=== PATIENT | male | born 1995 | race Caucasian/White ===

== ENCOUNTER 2016-12-02 16:00 | Emergency (ER) | payer OTHER ==
[2016-12-02 16:11] VITALS: BP 148/99
[2016-12-02] MEDS ORDERED: Ibuprofen TAB* 600 MG PO ONE (19:23)
--- NOTE | 2016-12-02 19:29 | ED ---
Lower Extremity - HPI Summary HPI Summary: 21 male presents to ED with complaints of left knee pain that has been ongoing for the past couple of days, worsening yesterday. Patient states it is the entire knee, inside. Hurts with movement, specifically straightening it completely and weight bearing. Patient states he has had this occur in the past. Is concerned that things dislocated or are out of place. Denies recent known injury or trauma. No known overuse. Has not taken any medication for pain. Denies PMHx other than HTN. No other complaints. Denies bruising, numbness /tingling, swelling and obvious deformity. - History of Current Complaint Chief Complaint: EDExtremityLower Stated Complaint: LT KNEE PAIN/FEELS WRONG Time Seen by Provider: 12/02/16 17:42 Hx Obtained From: Patient Mechanism Of Injury: Unknown Onset of Pain: Days Onset/Duration: Worse Since Severity Initially: Moderate Severity Currently: Severe Pain Intensity: 10 Pain Scale Used: 0-10 Numeric Timing: Constant Location: Is Discrete @ - left knee Character Of Pain: Sharp, Aching, Stiffness Associated Signs And Symptoms: Positive: Knee Pain. Negative: Swelling, Redness , Bruising Aggravating Factor(s): Standing, Ambulation, Movement, Weight Bearing Alleviating Factor(s): Rest Able to Bear Weight: Yes - with a cane, with pain - Allergies/Home Medications Allergies/Adverse Reactions: Allergies Allergy/AdvReac Type Severity Reaction Status Date / Time No Known Allergies Allergy Verified 09/13/12 10:19 PMH/Surg Hx/FS Hx/Imm Hx Endocrine/Hematology History: Denies: Hx Diabetes Cardiovascular History: Reports: Hx Hypertension Denies: Other Cardiovascular Problems/Disorders Respiratory History: Denies: Hx Asthma, Other Respiratory Problems/Disorders GI History: Reports: Hx Gastroesophageal Reflux Disease, Hx Hiatal Hernia Denies: Hx Ulcer Musculoskeletal History: Denies: Other Musculoskeletal History Sensory History: Denies: Hx Hearing Aid Comment Only: Hx Contacts or Glasses - GLASSES Opthamlomology History: Comment Only: Hx Contacts or Glasses - GLASSES Neurological History: Reports: Hx Headaches Denies: Other Neuro Impairments/Disorders - Surgical History Hx Anesthesia Reactions: No - Immunization History Immunizations Up to Date: Yes Infectious Disease History: No Infectious Disease History: Denies: Traveled Outside the [place] in Last 30 Days - Family History Known Family History: Positive: None - Social History Substance Use Type: Reports: None Smoking Status (MU): Never Smoked Tobacco Review of Systems Constitutional: Negative Respiratory: Negative Gastrointestinal: Negative Positive: Arthralgia, Myalgia, Decreased ROM Skin: Negative Neurological: Negative All Other Systems Reviewed And Are Negative: Yes Physical Exam Triage Information Reviewed: Yes Vital Signs On Initial Exam: Initial Vitals Temp Pulse Resp BP Pulse Ox 97.9 F 101 20 148/99 97 12/02/16 16:08 12/02/16 16:08 12/02/16 16:08 12/02/16 16:08 12/02/16 16:08 Vital Signs Reviewed: Yes Appearance: Positive: Well-Appearing, No Pain Distress, Well-Nourished Skin: Positive: Warm, Skin Color Reflects Adequate Perfusion, Dry, Other - no edema or eccyhmosis. Negative: Cold, Numb, Cyanosis @, Pale, Erythema @ Head/Face: Positive: Normal Head/Face Inspection Eyes: Positive: Normal, EOMI, MARIELENA, Conjunctiva Clear ENT: Positive: Normal ENT inspection, Hearing grossly normal, Pharynx normal, TMs normal Neck: Positive: Supple, Nontender Respiratory/Lung Sounds: Positive: Clear to Auscultation, Breath Sounds Present. Negative: Rales, Rhonchi, Wheezes Cardiovascular: Positive: Normal, RRR, Pulses are Symmetrical in both Upper and Lower Extremities. Negative: Murmur, Rub Abdomen Description: Positive: Nontender Bowel Sounds: Positive: Present Musculoskeletal: Positive: Normal, Limited @ - left knee with flexion and extension, any movement causes pain. diffuse, Pain @ - left knee, Other - no ecchymosis, crepitus, edema, step off or obvious deformity. Negative: Edema Left, Edema Right Neurological: Positive: Normal, Sensory/Motor Intact - sensation intact and normal, Alert, Oriented to Person Place, Time, Reflexes Intact, NV Bundle Intact Distally, Unable to Assess Gait - due to pain, patient is able to bear weight with use of cane Psychiatric: Positive: Affect/Mood Appropriate Diagnostics - Vital Signs Vital Signs Temp Pulse Resp BP Pulse Ox 12/02/16 16:08 97.9 F 101 20 148/99 97 - Laboratory Lab Statement: Any lab studies that have been ordered have been reviewed, and results considered in the medical decision making process. - Radiology left knee Xray Interpretation: No Acute Changes - The visualized bones are well- corticated and properly aligned. The joint spaces are properly maintained. There is no radiographic evidence of joint effusion. There is no acute fracture , dislocation or other focal bony abnormality. Radiology Interpretation Completed By: Radiologist Lower Extremity Course/Dx - Course Course Of Treatment: given ibuprofen for pain, had some relief. x-ray obtained and negative. given immobilizer and crutches. continue NSAID and RICE at home. no concern for any other emergent etiology at this time. normal PE findings. patient able to bear weight but does have pain. follow up with ortho if symptoms persist or worsen. follow up pcp. aware of worsening signs and symptoms to watch out for and to return if occur. - Diagnoses Differential Diagnosis/HQI/PQRI: Positive: Arthritis, Contusion, Dislocation, Fracture (Closed), Sprain, Strain Provider Diagnoses: Left knee pain Discharge - Discharge Plan Condition: Stable Disposition: HOME Patient Education Materials: Knee Pain (ED) Referrals: Magan Nails MD [Primary Care Provider] - Orly Cruz MD [Medical Doctor] - Additional Instructions: Use crutches and knee immobilizer to help with support and pain. Ibuprofen/tylenol for pain and discomfort. Heat during day and ice at night. Rest and elevate. Do not over use, use pain as your guide. Follow up with PCP. Make an appointment with Ortho if symptoms persist or worsen.
--- NOTE | 2016-12-02 19:54 | RAD ---
INDICATION: Left knee pain/"feels wrong" COMPARISON: None TECHNIQUE: 4 view radiograph of the left knee. FINDINGS: The visualized bones are well-corticated and properly aligned. The joint spaces are properly maintained. There is no radiographic evidence of joint effusion. There is no acute fracture, dislocation or other focal bony abnormality. IMPRESSION: Normal knee radiograph as described above. If the patient's symptoms persist, follow-up imaging is recommended.
== END 2016-12-02 20:15 | disposition home or self-care (01) ==
LOC: ED 16:00
DX: M25.562 Pain in left knee (principal); I10 Essential (primary) hypertension
CPT/HCPCS: A9270-GY

== ENCOUNTER 2018-06-10 21:03 | Emergency (ER) | payer OTHER ==
[2018-06-10 21:51] VITALS: BP 154/105
[2018-06-10] MEDS ORDERED: Cephalexin CAP* 500 MG PO ONE (22:15)
--- NOTE | 2018-06-10 22:19 | UC ---
Skin Complaint HPI - HPI Summary HPI Summary: 23 y/o male presents to the urgent care c/o left great infected ingrown toenail he noticed this morning. Pt reports he trimmed his toe nails about 3 days ago. This morning he noticed some drainage from it and it is very painful at touch and ambulation. Pain is 7/8. He has not applied or taking anything to alleviate symptoms. Pt denies Hx of MRSA, numbness or tingling sensation over the left great toe of foot, calf pain, SOb, chest pain, abdominal pain, dizziness, N/V/ D. - History of Current Complaint Chief Complaint: UCSkin Time Seen by Provider: 06/10/18 21:59 Stated Complaint: INGROWN TOENAIL Hx Obtained From: Patient Onset/Duration: Gradual Onset, Lasting Hours - 12 hrs, Still Present Skin Exposure Onset/Duration: Days Ago - 2 days ago Timing: Constant Onset Severity: Mild Current Severity: Moderate Pain Intensity: 7 Pain Scale Used: 0-10 Numeric Location: Discrete - left great toe infection Character: Swelling, Redness, Painful Aggravating Factor(s): Touch, Other - ambulation Alleviating Factor(s): Nothing Associated Signs & Symptoms: Positive: Rash - redness around left great toe, Drainage, Tenderness - left great toe. Negative: Fever, Chills Related History: Other: - trimming toe nails - Allergy/Home Medications Allergies/Adverse Reactions: Allergies Allergy/AdvReac Type Severity Reaction Status Date / Time No Known Allergies Allergy Verified 06/15/18 21:13 PMH/Surg Hx/FS Hx/Imm Hx Previously Healthy: Yes Cardiovascular History: Hypertension GI/ History: Gastroesophageal Reflux - and hiatal hernia - Surgical History Surgical History: Yes Surgery Procedure, Year, and Place: BILAT GREAT TOE SURGERIES, HIATAL HERNIA - Family History Known Family History: Positive: Hypertension - Social History Occupation: Employed Full-time Lives: With Family Alcohol Use: None Substance Use Type: None Smoking Status (MU): Never Smoked Tobacco Review of Systems All Other Systems Reviewed And Are Negative: Yes Constitutional: Positive: Negative Skin: Positive: Other - painful redness and swelling around the left great toe Eyes: Positive: Negative ENT: Positive: Negative Respiratory: Positive: Negative Cardiovascular: Positive: Negative Gastrointestinal: Positive: Negative Genitourinary: Positive: Negative Motor: Positive: Negative Neurovascular: Positive: Negative Musculoskeletal: Positive: Other: - left great toe infection Neurological: Positive: Negative Psychological: Positive: Negative Is Patient Immunocompromised?: No Physical Exam - Summary Physical Exam Summary: Vital Signs Reviewed: Yes General: well developed, well nourished obese male sitting in the examining table w/o any apparent distress Eye Exam: Normal Eyes: Positive: Conjunctiva Clear - PERRLA, EOMI, fundi grossly normal ENT: Positive: Normal ENT inspection, Hearing grossly normal, Pharynx normal, TMs normal Neck: Positive: Supple, Nontender, No Lymphadenopathy Respiratory: Positive: Chest non-tender, Lungs clear, Normal breath sounds, No respiratory distress Cardiovascular: Positive: RRR, No Murmur, Pulses Normal, Brisk Capillary Refill Abdomen Description: Positive: Nontender, No Organomegaly, Soft. Negative: CVA Tenderness (R), CVA Tenderness (L) Bowel Sounds: Positive: Present Musculoskeletal: Positive: Strength Intact, ROM Intact, No Edema Neurological: Positive: Alert, Muscle Tone Normal Psychological Exam: Normal Skin: Positive: medial aspect of left great toe w/ a discrete erythematous pustule that is indurated and fluctuant, tender to palpation, swollen, and warm to touch about .3cm in size. No drainage observed. FROM of great toe, sensation is intact, capillary refill WNL, reflexes WNL Triage Information Reviewed: Yes Vital Signs: Initial Vital Signs Temp 97.8 F 06/10/18 21:45 Pulse 103 06/10/18 21:45 Resp 16 06/10/18 21:45 BP 154/105 06/10/18 21:45 Pulse Ox 98 06/10/18 21:45 Course/Dx - Course Course Of Treatment: 23 y/o male presents to the urgent care c/o left great infected ingrown toenail he noticed this morning. Pt reports he trimmed his toe nails about 3 days ago. This morning he noticed some drainage from it and it is very painful at touch and ambulation. Pain is 7/8. He has not applied or taking anything to alleviate symptoms. Pt denies Hx of MRSA, numbness or tingling sensation over the left great toe of foot, calf pain, SOB, chest pain, abdominal pain, dizziness, N/V/ D. Hx obtained. Pt w/ left great toe paronychia. Pt declined I&D and request antibiotic treatment for now. No Hx of MRSA. Pt/s fot soak in warm water and antiseptic for 15min. area cleaned w/ iodine swabs and bacitracin ointment applied and sterile dressing applied. Pt Rx Keflex PO and Bacitracin oint advised to soak foot on warm water w/ [place] as directed below. First dose of ABX given at the clinic tonight since pharmacy is closed. Pt given post-op shoe to avoid flexion and givne referral w/ [employer] Dr Soto for further management if not improvement of symptoms in 2-3 dyas. Pt Advised to take Ibuprofen PO for pain and swelling. D/C instructions explained. Pt's BP is elevated today advised to decrease salt in diet, monitor BP and f/u with PCP for further management. However advised if he develops visual changes,SHERMAN, SOB, chest pain to go inmediately to the ER for further managment. D/C instructions explained. PT understood and agreed w/ plan of care. - Differential Diagnoses - Skin Complaint Differential Diagnoses: Abscess, Cellulitis, Local Allergic Reaction, MRSA, Other - paronychia, ingrown toenail - Diagnoses Provider Diagnosis: Ingrowing nail, left great toe, Uncontrolled hypertension Discharge - Sign-Out/Discharge Documenting (check all that apply): Patient Departure - D/C home All imaging exams completed and their final reports reviewed: No Studies - Discharge Plan Condition: Stable Disposition: HOME Prescriptions: Bacitracin OINTMENT* 1 applic TOPICAL BID #1 tube Cephalexin CAP* [Keflex CAP*] 500 mg PO QID #27 cap Patient Education Materials: Ingrown Nail (ED), Low-Sodium Diet (ED) Forms: *Work Release Referrals: Magan Nails MD [Primary Care Provider] - 3 Days Royce Soto DPM [Doctor of Podiatric Medicine] - 3 Days Additional Instructions: 1-Please take full course of antibiotic to avoid resistance. Keep wound clean and dry with a sterile dressing. Apply bacitracin topical as directed 2-Take Ibuprofen PO q6-8hrs prn for pain or swelling. 3- Please avoid flexion or your great toe by using the post-up shoe 4- Please f/u w/ [employer] Dr Soto in 2-3 days if not improvement of symptoms for further evaluation and treatment. 5-Your BP is elevated today. Please take your BP medications and decrease salt in your diet, monitor BP and if it continues to be elevated please f/u with your PCP for further management. If you develop chest pain, dizziness, visual disturbances, SOB, or severe SHERMAN please go immediately to the ER for further management - Billing Disposition and Condition Condition: STABLE Disposition: Home - Attestation Statements Provider Attestation: I was available for consult. This patient was seen by the CITLALLI. The patient was not presented to, seen by, or examined by me. -Andrew
== END 2018-06-10 23:05 | disposition home or self-care (01) ==
LOC: UCEAST 21:03
DX: L60.0 Ingrowing nail (principal); I10 Essential (primary) hypertension; K21.9 Gastro-esophageal reflux disease without esophagitis; K44.9 Diaphragmatic hernia without obstruction or gangrene
CPT/HCPCS: 99213; A9270-GY; G0463

== ENCOUNTER 2018-06-15 21:04 | Emergency (ER) | payer OTHER ==
[2018-06-15] MEDS ORDERED: Ketorolac INJ* 30 MG/ML 1 ML VIAL IV PUSH ONE (21:29)
--- NOTE | 2018-06-15 21:29 | ED ---
HPI Chest Pain - HPI Summary HPI Summary: A 23 y/o M presents to ED with c/o sharp CP on L-anterior onset [id number]. Associated sx: SOB, RUE pain which resolved. Pt was at rest at onset. He states that after dinner, the pain became milder and moved to mid-sternal. At bedside, his CP is back to L-anterior. He has not had these sx previously, and he has GERD, but tonight's sx don't feel like that. He has not been sick recently. He is on HTN medication. He also states being irritable today. Vitals at bedside: 109 bpm, BP: 170/109. - History of Current Complaint Chief Complaint: EDChestPainROMI Time Seen by Provider: 06/15/18 21:23 Hx Obtained From: Patient Onset/Duration: Started Hours Ago, Still Present Timing: Constant Initial Severity: Moderate Current Severity: Moderate Pain Intensity: 4 Pain Scale Used: 0-10 Numeric Chest Pain Location: Mid Sternal, Left Anterior Associated Signs and Symptoms: Positive: Shortness of Breath, Other: - pos: RUE pain, resolved - Allergy/Home Medications Allergies/Adverse Reactions: Allergies Allergy/AdvReac Type Severity Reaction Status Date / Time No Known Allergies Allergy Verified 06/15/18 21:13 Home Medications: Home Medications dilTIAZem HCl [Dilt-Xr] 180 mg PO QPM 06/15/18 [History Confirmed 06/15/18] PMH/Surg Hx/FS Hx/Imm Hx Previously Healthy: No Endocrine/Hematology History: Denies: Hx Diabetes Cardiovascular History: Reports: Hx Hypertension Denies: Other Cardiovascular Problems/Disorders Respiratory History: Denies: Hx Asthma, Other Respiratory Problems/Disorders GI History: Reports: Hx Gastroesophageal Reflux Disease, Hx Hiatal Hernia Denies: Hx Ulcer Musculoskeletal History: Denies: Other Musculoskeletal History Sensory History: Denies: Hx Hearing Aid Comment Only: Hx Contacts or Glasses - GLASSES Opthamlomology History: Comment Only: Hx Contacts or Glasses - GLASSES Neurological History: Reports: Hx Headaches Denies: Other Neuro Impairments/Disorders - Surgical History Surgery Procedure, Year, and Place: BILAT GREAT TOE SURGERIES, HIATAL HERNIA Hx Anesthesia Reactions: No Infectious Disease History: No Infectious Disease History: Denies: Traveled Outside the [place] in Last 30 Days - Family History Known Family History: Positive: None, Other - neg: anaesthesia reaction - Social History Occupation: Unemployed Lives: Alone Alcohol Use: None Hx Substance Use: No Substance Use Type: Reports: None Hx Tobacco Use: No Smoking Status (MU): Never Smoked Tobacco Review of Systems Positive: Chest Pain Positive: Shortness Of Breath Musculoskeletal: Other - pos: RUE pain, resolved All Other Systems Reviewed And Are Negative: Yes Physical Exam - Summary Physical Exam Summary: Appearance: Well-appearing, Obese male lying in bed comfortably Skin: Warm, dry, no obvious rash Eyes: sclera anicteric, no conjunctival pallor ENT: mucous membranes moist, pharynx appears normal Neck: Supple, nontender Respiratory: Clear to auscultation, no signs of respiratory distress Cardiovascular: Tachycardia, Normal S1, S2. No murmurs. Normal distal pulses in tibial and radial bilaterally. Abdomen: Soft, nontender, normal active bowel sounds present Musculoskeletal: Normal, Strength/ROM Intact Neurological: A&Ox3, awake and alert, mentation is normal, speech is fluent and appropriate Psychiatric: affect is normal, does not appear anxious or depressed Triage Information Reviewed: Yes Vital Signs On Initial Exam: Initial Vitals Temp Pulse Resp BP Pulse Ox 97.8 F 103 19 206/103 95 06/15/18 21:10 06/15/18 21:10 06/15/18 21:10 06/15/18 21:10 06/15/18 21:10 Vital Signs Reviewed: Yes Diagnostics - Vital Signs Vital Signs Temp Pulse Resp BP Pulse Ox 06/15/18 21:10 97.8 F 103 19 206/103 95 - Laboratory Result Diagrams: 06/15/18 21:36 06/15/18 23:02 Lab Statement: Any lab studies that have been ordered have been reviewed, and results considered in the medical decision making process. - EKG 2106 Cardiac Rate: Tachycardia - 102 bpm EKG Rhythm: Sinus Tachycardia Chest Pain Course/Dx - Course Course Of Treatment: Pt is an obese 23 y/o M presenting with sharp CP on L- anterior and mild SOB onset [id number] while at rest. Pt is tachy at bedside. EKG shows sinus tachy at 102 bpm. PT WILL BE SIGNED OUT TO DR. ROSARIO AT [facility]IFT [facility]ANGE PENDING CXR AND LABS. - Diagnoses Provider Diagnoses: Chest wall pain Discharge - Sign-Out/Discharge Documenting (check all that apply): Sign-Out Patient Signing out patient TO: Samuel Rosario - pending CXR and labs Patient Received Moderate/Deep Sedation with Procedure: No - Discharge Plan Condition: Stable Disposition: HOME Prescriptions: Ibuprofen TAB* [Motrin TAB* 800 MG] 800 mg PO Q6H PRN #30 tab PRN Reason: Pain Patient Education Materials: Chest Pain (ED) Referrals: Magan Nails MD [Primary Care Provider] - Additional Instructions: RETURN TO THE EMERGENCY DEPARTMENT FOR CHANGING OR WORSENING SYMPTOMS. FOLLOW UP WITH YOUR PRIMARY CARE PROVIDER WITHIN 1 to 2 DAYS as recommended. - Billing Disposition and Condition Condition: STABLE Disposition: Home - Attestation Statements Document Initiated by Bowen: Yes Documenting Scribe: Nasra Molina Provider For Whom Bowen is Documenting (Include Credential): Dr. Jean Pierre New MD Scribe Attestation: Nasra Owusu, scribed for Dr. Jean Pierre New MD on 06/18/18 at 0646. Scribe Documentation Reviewed: Yes Provider Attestation: The documentation as recorded by the Nasra ponce accurately reflects the service I personally performed and the decisions made by me, Dr. Jean Pierre New MD Status of Scribe Document: Viewed
[2018-06-15 21:42] LABS: ABS Basophils 0 10^3/ul (0-0.2); ABS Eosinophils 0.1 10^3/ul (0-0.6); ABS Lymphocytes 2.6 10^3/ul (1.0-4.8); ABS Monocytes 0.7 10^3/ul (0-0.8); ABS Neutrophils 3.4 10^3/ul (1.5-7.7); ABS Nucleated RBC 0 10^3/ul; Hematocrit 44 % (36-46); Hemoglobin 15.5 g/dL (14.0-18.0); Lymphocyte % 38.8 %; Mean Corpuscular HGB Conc 35 g/dL (31-36); Mean Corpuscular Hemoglobin 28 pg (27-31); Mean Corpuscular Volume 79 fL (80-94); Mean Platelet Volume 7.9 fL (7.4-10.4); Nucleated Red Blood Cells % 0.1; Platelet Count 216 10^3/uL (150-450); Red Blood Count 5.62 10^6 /uL (4.18-5.48); Red Cell Distribution Width 14 % (10.5-15); White Blood Count 6.8 10^3/uL (3.5-10.8)
[2018-06-15 21:59] LABS: ALT 126 U/L (7-52); Albumin 4.3 g/dL (3.2-5.2); Albumin/Globulin Ratio 1.5 (1-3); Alkaline Phosphatase 90 U/L (34-104); BUN/Creatinine Ratio 17.9 (8-20); Blood Urea Nitrogen 15 mg/dL (6-24); CO2 Carbon Dioxide 22 mmol/L (22-32); Calcium 9.2 mg/dL (8.6-10.3); Chloride 105 mmol/L (101-111); EGFR Non-African American 113.2 (>60); Globulin 2.8 g/dL (2-4); Glucose 113 mg/dL (70-100); Sodium 136 mmol/L (135-145); Total Protein 7.1 g/dL (6.4-8.9)
--- OUTSIDE RECORDS SUMMARY | 2018-06-15 22:00 | XMS REPORT | Continuity of Care Document ---
:1995 External Reference #:[id number] Author Name NO Regan Address [address] [facility] [place] [address] Care Team Providers Name Role Phone Magan Nails Care Team Information Assistant Professor Of Life Sciences Unavailable Magan Nails Primary Care Physician Unavailable Payers Date Identification Numbers Payment Provider Subscriber Effective: 2011 Policy Number: [id number] [facility] Hien Santana Group Name: [employer] [address] [address] PayID: [id number] [place] [address] Advance Directives Description No Information Available Problems Date Description Provider Status Onset: 05/26/2011 Acute upper respiratory infection Magan Nails M.D. Active Onset: 12/13/2012 Low back pain Magan Nails M.D. Active Onset: 12/13/2012 Neuralgia Magan Nails M.D. Active Onset: 03/17/2013 Epigastric pain Magan Nails M.D. Active Onset: 03/17/2013 Benign essential hypertension Magan Nails M.D. Active Onset: 03/17/2013 Gastroesophageal reflux disease Magan Nails M.D. Active Onset: 05/22/2013 Elevated blood-pressure reading without Magan Nails M.D. Active diagnosis of hypertension Onset: 04/27/2017 Palpitations Magan Nails M.D. Active Onset: 12/25/2016 Enthesopathy of knee Magan Nails M.D. Active Family History Date Family Member(s) Observation Comments Father Hypertension Father Glaucoma Father [place] Maternal Grandmother Ovarian Cancer Social History Type Date Description Comments Sex Unknown Lives With mother Tobacco Use Start: Unknown Never Smoked Cigarettes ETOH Use Denies alcohol use Recreational Drug Use Denies Drug Use Tobacco Use Start: Unknown Patient has never smoked Exercise Type/Frequency Exercises sporadically Allergies, Adverse Reactions, Alerts Description No Known Drug Allergies Medications Medication Date Status Form Strength Qnty SIG Indications Ordering Provider Dilt-XR 04/28 Active Caps ER 180mg 30cap Take One I10 Magan T. 24HR s Capsule By Midura, Mouth Every M.D. Day For High Blood Pressure Physical Therapy 01/03 Active treatment M54.5 Magan T. and Mid, evaluation M.D. low back pain Brimonidine 12/25 Active Solution 0.2% 1 GTT Both Unknown Tar Eyes bid for glaucoma Glaucoma gtts 09/29 Active 1 gtt both Unknown eyes qhs Azithromycin 05/16 Hx Tablets 250mg 6tabs 2 by mouth J06.9 Magan T. /2018 today and 1 Mid, - by mouth x M.D. 05/24 4 days Cheratussin ac 05/16 Hx Syrup 100-10mg/ 120ml 5-10 J06.9 Magan T. 5ML milliliters Mid, - every 4 M.D. 05/24 hours needed Diltiazem HCL ER 11/29 Hx Caps ER 180mg 30cap 1 by mouth I10 Magan T. 24HR s every day Midura, - for high M.D. 04/28 blood /2019 pressure Diltiazem HCL ER 10/29 Hx Caps ER 120mg 30cap 1 by mouth I10 Magan T. 24HR s daILY for Midura, - high blood M.D. 11/29 pressure /2017 Atenolol 05/21 Hx Tablets 25mg 30tab 1 by mouth I10 Magan T. s every day Midura, - M.D. 10/29 Meloxicam 12/25 Hx Tablets 7.5mg 30tab 1 by mouth M70.52 Magan T. s every day Midura, - for pain M.D. 04/27 and inflamation take with food. Physical Therapy 12/25 Hx treatment M70.52 Magan T. and Midura, - evaluation M.D. 04/27 left knee pain Lisinopril 11/11 Hx Tablets 10mg 30tab 1 by mouth Magan T. s every day Midura, - M.D. 05/21 No Active 10/09 Hx Unknown Medications /2016 - 11/11 No Active 10/08 Hx Unknown Medications /2015 - 10/08 Cyclobenzaprine 10/08 Hx Tablets 10mg 30tab 1 by mouth M54.5 Constance HCL /2015 s q hs as Sandy, - needed [facility] 10/09 No Active 10/17 Hx Unknown Medications /2014 - 10/17 Cyclobenzaprine 10/17 Hx Tablets 10mg 10tab 1 by mouth Leigh Ann HCL s q hs as Abdulaziz, - needed Afnp-C 10/08 Famotidine 03/17 Hx Tablets 20mg 30tab 1 bid prn 789.06 Magan T. s for stomach Midura, - M.D. 10/17 No Active 11/21 Hx Unknown Medications /2012 - 03/17 No Active 03/11 Hx Unknown Medications /2012 - 06/29 Zithromax 05/25 Hx Tablets 250mg 1tabs 2 po qd 465.9 Magan T. /2011 today , Midura, - then 1 po M.D. 06/04 qd times Zantac 05/03 Hx Tablets 150mg 60tab 1 po bid s Abdulaziz, - Afnp-C 05/25 Retin-A 08/19 Hx Cream 0.05% 45gm apply to Magan T. affected Midura, - area qhs M.D. 03/11 Nix Creme Rinse 11/29 Hx Liquid 1% 30ml apply to Magan T. scalp, Midura, - rinse out M.D. 08/19 after minutes Zithromax Z-Brayan 05/07 Hx Tablets 250mg 1Pack as Directed Cary R /2005 Mook, Janae SARABIA-Ching 10/29 Albuterol Aero 05/07 Hx 1unit Use tid as Cary Wright Inhaler /2005 s Directed Janea DelvalleP-C 11/27 Singulair 05/07 Hx Tablets 4mg 40tab One PO Cary R /2005 s Daily as Mook, - Directed [facility]-C 11/27 Robitussin 05/07 Hx Syrup 100mg/5ML 4Oz 1-2 TSP PO Cary R /2005 ;3.5%Alco qid prn Mook, - ho Cough [facility]-C 10/29 Nasonex 08/04 Hx 50mcg 1unit 1 spray Leigh Ann /2004 s each [facility], - nostril Afnp-C 11/27 daily /2007 Zithromax 07/25 Hx Suspension 200mg/5 40ML 2 teaspoons Roddy J. /2004 ML today and Breiman, - one M.D. 05/07 teaspoon /2005 for four days Claritin 07/21 Hx Tablets 10mg 30tab 1 po qd prn Magan T. /2004 s for Midura, - allergies M.D. 05/07 Zithromax 02/12 Hx 200mg/5cc 15ml 1 TSP Cb A. Suspension /2002 Today, Then Darlow, 200MG/5cc - /2 TSP qd M.D. 02/17 For 4 Days /2002 Tussi-12 02/12 Hx Liquid 100cc 1 tsp q12h Cb A. /2002 prn cough Darlow, - M.D. 02/12 Robitussin DM 02/12 Hx 4Oz one tsp Cb A. /2002 q4-6 prn as Darlow, - needed for M.D. 03/30 cough /2003 Bactroban 12/19 Hx Cream 15gm Apply bid prn Alexandra, - Afnp-C 12/26 Zithromax 04/01 Hx 200mg/5cc 30ml 2 TSP Day Magan T. Suspension One Then 1 Midura, 200MG/5cc - TSP Daily M.D. 12/19 Over /2002 Next 4 Days. Keflex 10/24 Hx 250mg/5cc 100cc Liquid - 1 Magan T. /2001 TSP PO bid Midura, - M.D. 03/[address] 20mg 1 po qd Unknown /0000 - 11/21 Immunizations CPT Code Status Date Vaccine Reaction Lot # [id number] Given 10/20/2017 Tetanus And Diptheria Adult [id number] Preservative Free >7Yrs 44109 Given 05/22/2013 Meningococcal Conjugate [id number] Vaccine,Serogroups For Intramuscular Use 82953 Given 08/19/2010 Varicella (Chicken Pox) no reaction noted [id number] Immunization 75177 Given 08/02/2006 Tdap Tetanus, W Pertussis [id number] 14557 Given 10/31/1999 (IPV) Inactive Poliovirus Vaccine 01918 Given 10/31/1999 MMR Virus Immunization 25636 Given 10/31/1999 DTaP Immunization 06276 Given 04/29/1996 MMR Virus Immunization 32811 Given 04/29/1996 DTaP Immunization 19434 Given 04/29/1996 (Hib) Hemoplilus Influenza B 56114 Given 02/03/1996 Varicella (Chicken Pox) Immunization 05040 Given 1995 (Hib) Hemoplilus Influenza B 02421 Given 1995 DTaP Immunization 62027 Given 1995 (IPV) Inactive Poliovirus Vaccine 76912 Given 1995 Hepatitis B Immunization, [place]-19 Years 934[address] Given 1995 (IPV) Inactive Poliovirus Vaccine 70779 Given 1995 DTaP Immunization 85513 Given 1995 (Hib) Hemoplilus Influenza B 85408 Given 1995 Hepatitis B Immunization, [place]-19 Years 47939 Given 1995 (IPV) Inactive Poliovirus Vaccine 06209 Given 1995 DTaP Immunization 88927 Given 1995 (Hib) Hemoplilus Influenza B 18834 Given 1995 Hepatitis B Immunization, -19 Years Vital Signs Date Vital Result Comment 05/24/2018 1:56pm BP Systolic 132 mmHg BP Diastolic 66 mmHg Heart Rate 84 /min Body Temperature 97.1 F Respiratory Rate 18 /min Height 69 inches 5'9" Weight 290.50 lb BMI (Body Mass Index) 42.9 kg/m2 05/16/2018 9:11am BP Systolic 142 mmHg BP Diastolic 90 mmHg Heart Rate 120 /min Body Temperature 97.0 F Respiratory Rate 22 /min Weight 294.00 lb 01/03/2018 3:59pm BP Systolic 148 mmHg BP Diastolic 88 mmHg Heart Rate 88 /min Body Temperature 98.2 F Respiratory Rate 18 /min Height 69.5 inches 5'9.50" measured 10/17/14 Weight 290.12 lb BMI (Body Mass Index) 42.2 kg/m2 11/29/2017 11:00am BP Systolic 148 mmHg BP Diastolic 82 mmHg Heart Rate 80 /min Body Temperature 97.7 F Respiratory Rate 16 /min Height 69.5 inches 5'9.50" measured 10/17/14 Weight 285.25 lb BMI (Body Mass Index) 41.5 kg/m2 10/29/2017 4:09pm BP Systolic 136 mmHg BP Diastolic 88 mmHg Heart Rate 76 /min Body Temperature 97.2 F Respiratory Rate 16 /min Height 69.5 inches 5'9.50" measured 10/17/14 Weight 286.38 lb BMI (Body Mass Index) 41.7 kg/m2 07/16/2017 4:05pm BP Systolic 140 mmHg BP Diastolic 80 mmHg Heart Rate 76 /min Body Temperature 98.0 F Respiratory Rate 16 /min Height 69.5 inches 5'9.50" measured 10/17/14 Weight 290.00 lb BMI (Body Mass Index) 42.2 kg/m2 05/21/2017 11:40am BP Systolic 156 mmHg BP Diastolic 80 mmHg Heart Rate 90 /min Body Temperature 97.9 F Respiratory Rate 16 /min Height 69.5 inches 5'9.50" measured 10/17/14 Weight 279.50 lb BMI (Body Mass Index) 40.7 kg/m2 04/27/2017 1:37pm BP Systolic 138 mmHg BP Diastolic 82 mmHg Heart Rate 76 /min Body Temperature 97.5 F Respiratory Rate 16 /min Height 69.5 inches 5'9.50" measured 10/17/14 Weight 281.25 lb BMI (Body Mass Index) 40.9 kg/m2 12/25/2016 2:15pm BP Systolic 158 mmHg BP Diastolic 80 mmHg Heart Rate 90 /min Body Temperature 97.5 F Respiratory Rate 16 /min Height 69.5 inches 5'9.50" measured 10/17/14 Weight 277.38 lb BMI (Body Mass Index) 40.4 kg/m2 10/09/2016 10:16am BP Systolic 150 mmHg BP Diastolic 108 mmHg Heart Rate 76 /min Body Temperature 97.7 F Height 69.5 inches 5'9.50" measured 10/17/14 Weight 280.00 lb BMI (Body Mass Index) 40.8 kg/m2 10/09/2015 1:31pm BP Systolic 120 mmHg BP Diastolic 80 mmHg Heart Rate 76 /min Body Temperature 98.0 F Respiratory Rate 18 /min Height 69.5 inches 5'9.50" measured 10/17/14 Weight 268.00 lb BMI (Body Mass Index) 39.0 kg/m2 10/17/2014 10:50am BP Systolic 158 mmHg BP Diastolic 98 mmHg Heart Rate 84 /min Body Temperature 97.7 F Respiratory Rate 16 /min Height 69.75 inches 5'9.75" measured 10/17/14 Weight 271.12 lb BMI (Body Mass Index) 39.2 kg/m2 06/26/2013 12:54pm BP Systolic 130 mmHg BP Diastolic 80 mmHg Heart Rate 66 /min Body Temperature 97.7 F Respiratory Rate 18 /min Height 69.5 inches 5'9.50" Weight 252.00 lb BMI (Body Mass Index) 36.7 kg/m2 Body Mass Index Percentile 99 % Weight Percentile >97th Height Percentile 50 % 05/22/2013 3:26pm BP Systolic 138 mmHg BP Diastolic 90 mmHg Heart Rate 84 /min Body Temperature 97.5 F Respiratory Rate 16 /min Height 69.5 inches 5'9.50" Weight 249.00 lb BMI (Body Mass Index) 36.2 kg/m2 Body Mass Index Percentile 99 % Weight Percentile >97th Height Percentile 51 % 03/17/2013 4:08pm BP Systolic 140 mmHg BP Diastolic 86 mmHg Heart Rate 90 /min Body Temperature 95.7 F Respiratory Rate 16 /min Height 69.5 inches 5'9.50" Weight 244.38 lb BMI (Body Mass Index) 35.6 kg/m2 Body Mass Index Percentile 99 % Weight Percentile >97th Height Percentile 51 % 12/13/2012 5:19pm BP Systolic 134 mmHg BP Diastolic 88 mmHg Heart Rate 90 /min Body Temperature 97.7 F Respiratory Rate 16 /min Height 69.5 inches 5'9.50" Weight 223.25 lb BMI (Body Mass Index) 32.5 kg/m2 Body Mass Index Percentile 98 % Weight Percentile >97th Height Percentile 52 % 11/21/2012 7:06pm BP Systolic 140 mmHg BP Diastolic 90 mmHg Heart Rate 68 /min Body Temperature 98.4 F Respiratory Rate 16 /min Height 69.5 inches 5'9.50" Weight 226.00 lb BMI (Body Mass Index) 32.9 kg/m2 Body Mass Index Percentile 98 % Weight Percentile >97th Height Percentile 52 % 06/29/2012 11:06am BP Systolic 138 mmHg BP Diastolic 80 mmHg Heart Rate 88 /min Body Temperature 98.2 F Respiratory Rate 18 /min Height 69.5 inches 5'9.50" Weight 226.00 lb BMI (Body Mass Index) 32.9 kg/m2 Body Mass Index Percentile 98 % Weight Percentile >97th Height Percentile 54 % 03/11/2012 9:13am BP Systolic 120 mmHg BP Diastolic 80 mmHg Heart Rate 76 /min Body Temperature 98.0 F Height 68 inches 5'8" Weight 218.00 lb BMI (Body Mass Index) 33.1 kg/m2 Body Mass Index Percentile 98 % Weight Percentile >97th Height Percentile 35 % 05/26/2011 12:38pm BP Systolic 110 mmHg BP Diastolic 70 mmHg Heart Rate 88 /min Body Temperature 97.7 F Respiratory Rate 14 /min Height 68 inches 5'8" Weight 211.00 lb BMI (Body Mass Index) 32.1 kg/m2 Body Mass Index Percentile 98 % Weight Percentile >97th Height Percentile 42 % 05/04/2011 12:52pm BP Systolic 126 mmHg BP Diastolic 68 mmHg Heart Rate 72 /min Body Temperature 97.1 F Height 68 inches 5'8" Weight 216.00 lb BMI (Body Mass Index) 32.8 kg/m2 Body Mass Index Percentile 98 % Weight Percentile >97th Height Percentile 43 % 08/19/2010 2:10pm BP Systolic 110 mmHg BP Diastolic 70 mmHg Heart Rate 64 /min Body Temperature 98.2 F Respiratory Rate 18 /min Height 68 inches 5'8" Weight 195.00 lb BMI (Body Mass Index) 29.6 kg/m2 Body Mass Index Percentile 97 % Weight Percentile 97th Height Percentile 53 % Right Visual Acuity Distance 20/20 With Corrective Lens Left Visual Acuity Distance 20/20 07/16/2008 4:17pm BP Systolic 120 mmHg BP Diastolic 80 mmHg Heart Rate 80 /min Body Temperature 98.4 F Height 66.5 inches 5'6.50" Weight 158.00 lb BMI (Body Mass Index) 25.1 kg/m2 Body Mass Index Percentile 98 % Weight Percentile >97th Height Percentile 87 % 11/28/2007 4:00pm BP Systolic 110 mmHg BP Diastolic 80 mmHg Heart Rate 80 /min Body Temperature 97.9 F Height 65 inches 5'5" Weight 146.00 lb BMI (Body Mass Index) 24.3 kg/m2 Body Mass Index Percentile 97 % Weight Percentile >97th Height Percentile 90 % Right Visual Acuity Distance 20/40 Left Visual Acuity Distance 20/40 03/15/2006 4:25pm BP Systolic 100 mmHg BP Diastolic 60 mmHg Body Temperature 98.9 F Weight 115.00 lb Weight Percentile >95th 10/29/2005 9:18am BP Systolic 125 mmHg BP Diastolic 76 mmHg Heart Rate 84 /min Height 58 inches 4'10" Weight 106.00 lb BMI (Body Mass Index) 22.2 kg/m2 Body Mass Index Percentile 95 % Weight Percentile 95th Height Percentile 76 % Right Visual Acuity Distance 20/25 Left Visual Acuity Distance 20/25 05/07/2005 3:02pm BP Systolic 92 mmHg BP Diastolic 60 mmHg Body Temperature 98.4 F Weight 108.00 lb Weight Percentile >95th 09/26/2004 2:34pm BP Systolic 108 mmHg BP Diastolic 68 mmHg Heart Rate 100 /min Body Temperature 98.3 F Height 54 inches 4'6" Weight 100.00 lb BMI (Body Mass Index) 24.1 kg/m2 Body Mass Index Percentile 95 % Weight Percentile >95th Height Percentile 52 % 07/21/2004 6:14pm BP Systolic 110 mmHg BP Diastolic 70 mmHg Heart Rate 90 /min Body Temperature 97.3 F Weight 103.00 lb Weight Percentile >95th 08/13/2003 2:36pm BP Systolic 102 mmHg BP Diastolic 62 mmHg Heart Rate 86 /min Height 55.0 inches 4'7" Weight 96.00 lb BMI (Body Mass Index) 22.3 kg/m2 Weight Percentile >95th Height Percentile 92 % 07/05/2003 8:13pm BP Systolic 98 mmHg BP Diastolic 58 mmHg Heart Rate 84 /min Body Temperature 97.5 F Weight 98.00 lb Weight Percentile >95th 03/30/2003 2:01pm Body Temperature 98.1 F Weight 93.00 lb Weight Percentile >95th 03/14/2003 3:11pm Body Temperature 97.0 F Weight 93.00 lb Weight Percentile >95th 02/28/2003 4:46pm BP Systolic 114 mmHg BP Diastolic 60 mmHg Heart Rate 96 /min Weight 92.00 lb Weight Percentile >95th 02/12/2003 3:07pm BP Systolic 96 mmHg BP Diastolic 64 mmHg Heart Rate 104 /min Body Temperature 98.4 F Weight 92.00 lb Weight Percentile >95th 02/07/2003 1:07pm Body Temperature 97.0 F Weight 90.00 lb Weight Percentile >95th 01/31/2003 1:48pm Body Temperature 98.6 F Weight 94.00 lb Weight Percentile >95th 01/17/2003 12:51pm BP Systolic 94 mmHg BP Diastolic 60 mmHg Heart Rate 96 /min Weight 91.00 lb Weight Percentile >95th 01/10/2003 9:09am Body Temperature 97.6 F Weight 88.00 lb Weight Percentile >95th 12/19/2002 2:12pm BP Systolic 106 mmHg BP Diastolic 78 mmHg Heart Rate 100 /min Height 54.5 inches 4'6.50" Weight 85.00 lb BMI (Body Mass Index) 20.1 kg/m2 Weight Percentile >95th Height Percentile 95 % Right Visual Acuity Distance 20/20 Left Visual Acuity Distance 20/20 04/01/2002 11:40am Body Temperature 96.0 F Weight 82.00 lb Weight Percentile >95th 03/29/2002 12:37pm Body Temperature 98.0 F Weight 82.00 lb Weight Percentile >95th 03/16/2002 8:33pm BP Systolic 98 mmHg BP Diastolic 60 mmHg Heart Rate 90 /min Body Temperature 96.5 F Height 51 inches 4'3" Weight 83.00 lb BMI (Body Mass Index) 22.4 kg/m2 Weight Percentile >95th Height Percentile 93 % 10/24/2001 3:00pm BP Systolic 100 mmHg BP Diastolic 60 mmHg Height 49 inches 4'1" Weight 71.00 lb BMI (Body Mass Index) 20.8 kg/m2 Weight Percentile >95th Height Percentile 95 % Right Visual Acuity Distance 20/25 03/29/2001 2:01pm Body Temperature 97.0 F Weight 65.00 lb Weight Percentile >95th 10/06/2000 3:17pm BP Systolic 102 mmHg BP Diastolic 60 mmHg Heart Rate 88 /min Height 47.25 inches 3'11.25" Weight 60.00 lb BMI (Body Mass Index) 19.1 kg/m2 Weight Percentile >95th Height Percentile 95 % Results Test Date Facility Test Result H/L Range Note Basic Metabolic Profile 04/27/2017 [facility] Sodium 138 mEq/L 134- 149 Potassium 4.2 mEq/L 3.6-5.5 Chloride 98 mEq/L 94-112 Carbon Dioxide 26 mEq/L 21-32 Glucose 104 mg/dL 70-105 BUN 14 mg/dL 6-26 Creatinine 0.9 mg/dL 0.6-1.4 BUN/Creat Ratio 15.6 CALC 8.0-36.0 Calcium 9.9 mg/dL 8.6-10.2 GFR Non- >60 ml/min/1.73m^ >=60 GFR >60 ml/min/1.73m^ >=60 Laboratory test 04/27/2017 [facility] Magnesium, Serum 1.7 mEq/L 1.2-2.1 finding TSH 1.93 mIU/L 0.50-6.00 Free T4 1.22 ng/dL 0.75-1.54 Ua - Non Micro (Fma) 10/09/2015 Family [facility] Appearance clear (607)- - Color yellow Glucose, Urine (Fma/CMC/CTX) neg Bilirubin neg Ketones neg SP Grav 1.025 Blood neg PH 6.0 Protein neg Urobil 0.2 Nitrite neg Leukocytes (a/[facility]) neg Comprehensive Metabolic Prof 11/30/2012 [facility] Albumin 4.9 g/dL 3.8-5.5 Alk. Phos. 118 U/L High 22-95 1 Alt (SGPT) 67 U/L High 10-40 2 Ast (Sgot) 40 U/L High 5-34 3 BUN 11 mg/dL 6-26 Calcium 9.2 mg/dL 8.6-10.2 Chloride 98 mEq/L 94-112 Creatinine 1.0 mg/dL 0.6-1.4 Carbon Dioxide 27 mEq/L 21-32 Glucose 91 mg/dL 70-105 Sodium 136 mEq/L 134-149 Total Bilirubin 0.7 mg/dL 0.2-1.3 Total Protein 7.4 g/dL 6.3-8.1 Potassium 4.1 mEq/L 3.6-5.5 Globulin 2.5 g/dL 2.0-4.8 A/G Ratio 2.0 Calc 0.6-2.3 BUN/Creat Ratio 11.0 Calc 8.0-36.0 Laboratory test 11/30/2012 [facility] TSH 0.59 mIU/L 0.50-6.00 finding Lipid Profile 11/30/2012 [facility] Cholesterol 174 mg/dL 120-200 HDL 33 mg/dL 30-70 Triglycerides 162 mg/dL 30-200 HDL Risk Factor 5.3 CALC High 0.0-4.4 LDL (Calculated) 109 CALC 0-129 VLDL (Calculated) 32 mg/dL 0-50 CBC Electronic (Fma) 11/30/2012 [facility] WBC 7.6 3.6-9.6 (607)- - RBC 5.60 3.90-5.70 Hemoglobin (Fma/CMC/CTX) 15.7 g/dL 12.1 - 17.2 Hematocrit (Fma/CMC/CTX) 47.0 % 36.1 - 50.3 Platelets 195 10^3/ul 150-400 Lymph% 20.7 20.5-51.1 Mixed% 4.1 Neutrophils % 75.2 Mean Corpuscular Vol 84 82.2-97.4 Mean Corpuscular Hemoglobin 28.0 27.6-33.3 Mean Corpuscular Hemo Concen 33.4 32.0-36.0 RDW 11.3 Low 11.6-13.7 Mean Platelet Volume 7.0 6.5-11.0 Clotest 05/02/2012 [facility] Clotest (SEE NOTE) 4 Stool For Blood 04/08/2012 [facility] Stool Occult Blood (SEE NOTE) 5 CBC Auto Diff 04/08/2012 [facility] White Blood Count 6.1 10^3/uL 4.8-10.8 Red Blood Count 5.69 10^6/uL High 4.0-5.4 Hemoglobin 16.0 g/dL 14.0-18.0 Hematocrit 46 % 42-52 Mean Corpuscular Volume 81 fL 80-94 Mean Corpuscular Hemoglobin 28 pg 27-31 Mean Corpuscular HGB Conc 35 g/dL 31-36 Red Cell Distribution Width 13 % 10.5-15 Platelet Count 215 10^3/uL 150-450 Mean Platelet Volume 7 um3 Low 7.4-10.4 Abs Neutrophils 3.9 10^3/uL 1.5-7.7 Abs Lymphocytes 1.6 10^3/uL 1.0-4.8 Abs Monocytes 0.6 10^3/uL 0-0.8 Abs Eosinophils 0.1 10^3/uL 0-0.6 Abs Basophils 0 10^3/uL 0-0.2 Abs Nucleated RBC 0 10^3/uL Granulocyte % 63.7 % 38-83 Lymphocyte % 25.9 % 25-47 Monocyte % 9.1 % High 1-9 Eosinophil % 0.9 % 0-6 Basophil % 0.4 % 0-2 Nucleated Red Blood Cells % 0.1 Urinalysis 04/08/2012 [facility] Urine Color Yellow Urine Appearance Turbid Urine Specific [place] 1.022 1.010-1.030 Urine Esterase Negative Negative Urine Nitrate Negative Negative Urine Urobilinogen Negative E.U./dL Negative Urine Protein Negative mg/dL Negative Urine pH 7.5 5-9 Urine Blood Negative Negative Urine Ketones Negative mg/dL Negative Urine Bilirubin Negative Negative Urine Glucose Negative mg/dL Negative Comp Metabolic Panel 04/08/2012 [facility] Sodium 136 mmol/L 133-145 Potassium 4.1 mmol/L 3.5-5.0 Chloride 103 mmol/L 101-111 Co2 Carbon Dioxide 27.0 mmol/L 22-32 Anion Gap 6.0 mmol/L 2-11 Glucose 90 mg/dL 70-100 Blood Urea Nitrogen 11 mg/dL 6-24 Creatinine 0.70 mg/dL 0.50-1.40 BUN/Creatinine Ratio 15.7 8-20 Calcium 9.4 mg/dL 8.1-9.9 Total Protein 7.0 g/dL 6.2-8.1 Albumin 4.2 g/dL 3.6-5.4 Globulin 2.8 g/dL 2-4 Albumin/Globulin Ratio 1.5 1-3 Total Bilirubin 0.8 mg/dL 0.4-1.5 Alkaline Phosphatase 106 U/L 50-176 Alt 55 U/L High 14-54 Ast 38 U/L 12-42 Laboratory test finding 04/08/2012 [facility] Lipase 52 U/L High 22-51 C Reactive Protein 1.0 mg/dL High Less than 0.5 Laboratory test 05/26/2011 [facility] Bordetella <SEE 6 finding Pertussis NOTE> CBC Electronic 05/04/2011 [facility] WBC 7.1 3.6-9 (Fma) (607)- - .6 RBC 5.39 3.90-5.70 Hemoglobin (Fma/CMC/CTX) 15.3 g/dL 12.1 - 17.2 Hematocrit (Fma/CMC/CTX) 43.6 % 36.1 - 50.3 Platelets 228 10^3/ul 150-400 Lymph% 33.3 20.5-51.1 Mixed% 9.7 Neutrophils % 57.0 Mean Corpuscular Vol 80.9 Low 82.2-97.4 Mean Corpuscular Hemoglobin 28.4 27.6-33.3 Mean Corpuscular Hemo Concen 35.1 32.0-36.0 RDW 12.9 11.6-13.7 Mean Platelet Volume 9.8 6.5-11.0 Laboratory test finding 05/04/2011 [facility] TSH 1.74 mIU/L 0.50- 6.00 Free T4 0.80 ng/dL 0.75-1.54 Comprehensive Metabolic Prof 05/04/2011 [facility] Albumin 4.6 g/dL 3.8-5.5 Alk. Phos. 132 U/L High 22-95 7 Alt (SGPT) 49 U/L High 10-40 8 Ast (Sgot) 31 U/L 5-34 BUN 18 mg/dL 6-26 Calcium 9.0 mg/dL 8.6-10.2 Chloride 99 mEq/L 94-112 Creatinine 0.8 mg/dL 0.6-1.4 Carbon Dioxide 29 mEq/L 21-32 Glucose 90 mg/dL 70-105 Sodium 134 mEq/L 134-149 Total Bilirubin 0.4 mg/dL 0.2-1.3 Total Protein 7.2 g/dL 6.3-8.1 Potassium 3.9 mEq/L 3.6-5.5 Globulin 2.5 g/dL 2.0-4.8 A/G Ratio 1.8 Calc 0.6-2.2 BUN/Creat Ratio 23.8 Calc 8.0-36.0 Iron/Tibc,%Sat Group 02/17/2011 [facility] Iron 51 g/dL 46-155 9 [address] [place] [address] [phone] Total Iron Binding Cap. 402 g/dL 250-450 % Iron Saturation 12.7 % Low 13.0-45.0 Hered Hemochrom 02/17/2011 [facility] Hereditary SEE NOTE 10 Dna 28 [facility] [place] [address] [phone] Please Note: SEE NOTE 11 CBC Electronic (Fma) 02/17/2011 [facility] [place] [facility] WBC 6.4 3.6-9.6 (607)- - RBC 5.24 3.90-5.70 Hemoglobin (Fma/CMC/CTX) 14.8 g/dL 12.1 - 17.2 Hematocrit (Fma/CMC/CTX) 42.8 % 36.1 - 50.3 Platelets 210 10^3/ul 150-400 Lymph% 33.6 20.5-51.1 Mixed% 8.0 Neutrophils % 58.4 Mean Corpuscular Vol 81.7 Low 82.2-97.4 Mean Corpuscular Hemoglobin 28.2 27.6-33.3 Mean Corpuscular Hemo Concen 34.6 32.0-36.0 RDW 13.1 11.6-13.7 Mean Platelet Volume 9.2 6.5-11.0 Hep C Abs 02/11/2011 [facility] Hep C Antibody NON-REACTIVE Non-Reactive [address] [place], [place] [id number] [phone] Hep C S/Co Ratio <0.0 0.0-0.7 Ua - Non Micro (Fma) 08/19/2010 [facility] Appearance CLEAR (607)- - Color YELLOW Glucose NEG Bilirubin NEG Ketones NEG SP Grav 1.020 Blood NEG PH 5.5 Protein NEG Urobil 0.2 Nitrite NEG Leukocytes (Fma/CMC/[facility]) NEG Ua - Non Micro (Fma) 07/16/2008 [facility] Appearance CLEAR (607)- - Color YELLOW Glucose NEG Bilirubin NEG Ketones NEG SP Grav 1.020 Blood NEG PH 7.5 Protein SSA- Urobil 1.0 Nitrite NEG Leukocytes (Fma/CMC/[facility]) NEG Ua - Non Micro (Fma) 11/28/2007 [facility] Appearance CLEAR (607)- - Color YELLOW Glucose NEG Bilirubin NEG Ketones TRACE SP Grav 1.015 Blood NEG PH 8.5 Protein SSA=NEG Urobil 1.0 Nitrite NEG Leukocytes (Fma/CMC/[facility]) NEG Ua - Non Micro (Fma) 10/29/2005 Family [facility] Appearance CLEAR (607)- - Color YELLOW Glucose NEG Bilirubin NEG Ketones NEG SP Grav >=1.030 Blood NEG PH 5.5 Protein NEG Urobil 0.2 Nitrite NEG Leukocytes (Fma/CMC/[facility]) NEG Ua - Non Micro (Fma New) 09/26/2004 Family Medicine Appearance CLEAR (607)- - Color YELLOW Glucose NEG Bilirubin NEG Ketones NEG SP Grav 1.015 Blood NEG PH 7.5 Protein NEG Urobil 0.2 Nitrite NEG Leukocytes NEG Ua - Non Micro (Fma New) 08/13/2003 Family Medicine Appearance CLEAR (607)- - Color LT YELLOW Glucose NEG Bilirubin NEG Ketones NEG SP Grav >=1.030 Blood NEG PH 5.0 Protein NEG Urobil 0.2 Nitrite NEG Leukocytes NEG Ua - Non Micro (Fma New) 12/19/2002 Family Medicine Appearance CLEAR (607)- - Color YELLOW Glucose NEG Bilirubin NEG Ketones NEG SP Grav 1.025 Blood NEG PH 7.0 Protein NEG Urobil 0.2 Nitrite NEG Leukocytes NEG Ua - Non Micro (Fma New) 10/24/2001 Family Medicine Appearance CLEAR/ YELLOW (607)- - Glucose NEG Bilirubin NEG Ketones NEG SP Grav 1.020 Blood NEG PH 6.5 Protein NEG Urobil 0.2 Nitrite NEG Leukocytes NEG Laboratory test 10/24/2001 [facility] Lead, Blood 8.2 0-25.0 12 finding (Pediatric) Laboratory test 04/08/2001 Family Medicine Quickstrep NEGATIVE Negative finding (607)- - Ua - Non Micro 10/06/2000 Family Medicine Appearance CLEAR YELLOW (Fma New) (607)- - Glucose NEGATIVE Bilirubin NEGATIVE Ketones NEGATIVE SP Grav 1.025 Blood NEGATIVE PH 6.0 Protein NEGATIVE Urobil 0.2 Nitrite NEGATIVE Leukocytes NEGATIVE 1 result zeenat'd 2 result zeenat'd 3 result zeenat'd 4 RUN DATE: 05/03/12 [facility] LAB LIVE PAGE 1 RUN TIME: [address] [place] [address] Specimen Inquiry Name: HIEN SANTANA : [address]: Jatinder Dozier MD Acct: [id number] Unit: [id number] AGE: 17 Location: ENDO Re05/02/12 SEX: M Status: REG REF SPEC: [id number] ZULEIMA: 05/02/127701 [facility] DR: Jatinder Dozier MD REQ: [id number] RECD: 05/02/12 STATUS: JOSELIN SNOW DR: Magan Nails MD _ SOURCE: [facility]AS [facility]: ORDERED: Clotest Procedure Result Verified Site Clotest Final 05/03/12745 ML Clotest Negative END OF REPORT * ML=Testing performed at Main Lab DEPARTMENT OF PATHOLOGY, [address] [place] [address] Jhon Kerr M.D. Director [facility] Permit #[id number] RUN DATE: 04/08/12 [facility] LAB LIVE PAGE 1 RUN TIME: [address] [place] [address] Specimen Inquiry Name: HIEN SANTANA : [address]: Jose Angel Bustillo Acct: [id number] Unit: [id number] AGE: 17 Location: ED Re04/08/12 SEX: M Status: REG ER SPEC: [id number] ZULEIMA: 04/08/[address] [facility] [address]: Jose Angel Noguera DO REQ: [id number] RECD: 04/08/12 STATUS: JOSELIN SNOW DR: Magan Nails MD _ SOURCE: STOOL SPDESC: ORDERED: Hemoccult Procedure Result Verified Site Stool Specimen Description Final 04/08/12- 1344 ML Test not performed Stool Occult Blood Final 04/08/12- 1344 ML Stool Occult Blood Positive END OF REPORT * ML=Testing performed at Main Lab DEPARTMENT OF PATHOLOGY, [address] [place] [address] Jhon Kerr M.D. [facility] Permit #[id number] 6 RUN DATE: 05/29/11 [facility] NMI LIVE PAGE 1 RUN TIME: 906 Specimen Inquiry RUN USER: INTERFACE Name: HIEN SANTANA Status: REG REF Re05/26/11 Age/Sex: 16/M Unit#: [id number] Location: RUST : 95 SPEC #: [id number] ZULEIMA: 05/26/11 STATUS: COMP REQ #: [id number] RECD: 05/26/[address] [facility] [address]: Jesu RANGEL,Magan Riggs SOURCE: NASMONOARYN ENTR: 05/26/[address]: GLADIS: ORDERED: PERTUSSIS GALLIPOLIS QUERIES: MEDENT REQUISITION # [id number] ACT WKST: SO 05/29/11 #1 Procedure Result Verified Site > BORDETELLA PERTUSSIS Final 05/29/11- 0907 ML BORDETELLA BY RAPID PCR Negative for Bordetella pertussis/parapertussis DNA Laboratory developed test. Test performed by: [employer] [place], [place] [address] - [facility] Permit #[id number] [address] [place] [address] DEPARTMENT OF PATHOLOGY, [address] [place] [address] [facility] Permit #[id number] Jhon Kerr M.D. Director Nora Lara M.D. [employer] 7 RESULT ZEENAT'D 8 RESULT ZEENAT'D 9 ; 10 NO MUTATION IDENTIFIED . Interpretation: This patient's sample was analyzed for the hereditary hemochromatosis (HH) mutations C282Y, H63D, S65C. No mutation was identified. The mutations analyzed by [employer] are most common in the population, and up to 90% of affected Caucasians will have a positive test result. Because this panel does not identify rare HH mutations or HH mutations found in other ethnic groups, there are a small number of people who may have a negative test but may actually be affected. The diagnosis of HH should include clinical findings and other test results such as transferrin-iron saturation and/or serum ferritin studies and/or liver biopsy. If this patient has a history of HH, in many cases a specific carrier risk can be determined based on this negative result. Methodology: DNA Analysis of the HFE gene was performed by PCR amplification followed by restriction enzyme digestion analyses. . Reference: Randall LEON and Laz ROLLINS. (2000). Latesha Test 4:97-101. Lashay LOREDO et al. (1998). AM J Prev Med 16:134-140. Jarod De La Rosa (2002). Lancet 360(4657):1673-31. Marilu Quiros al. (2002). Blood Cells, Molecules. and Diseases. 29(3):418-432. Grisel Montiel et al. (2003). Latesha Med. 5(1):1-8. Lashay LOREDO et al. (2003). Latesha Med. 5(4):304-10. 11 Genetic counselors are available for health care providers to discuss results at [phone]. . Raffy Shields, Ph.D. Gris Corcoran, Ph.D. Monica Early, Ph.D. Annie Trotter, Ph.D. Shaniqua Santo, Ph.D. Jeannie Santos, Ph.D. 12 REFERENCE RANGE FOR CHILDREN LESS THAN 6 CBC CLASS BLOOD LEAD CONCENTRATION (MG/DL) I LESS THAN OR EQUAL TO 9 IIA 10-14 IIB 15-19 III 20-44 IV 45-69 V GREATER THAN OR EQUAL TO 70 Procedures Date Code Description Status 10/29/2017 28555 Electrocardiogram Complete Completed 04/27/2017 75120 Electrocardiogram Complete Completed 10/09/2016 57693 Destruction Of Flat Warts Or Molluscum Contagiosum, Milia Completed To 15 10/09/2016 07167 Destruction-1 Beign Lesion Completed 10/09/2015 76247 Destruction Of Flat Warts Or Molluscum Contagiosum, Milia Completed To 15 10/09/2015 54138 Destruction-1 Beign Lesion Completed 02/07/2003 15671 Destruction-1 Beign Lesion Completed Encounters Type Date Location Provider Dx Diagnosis Office Visit 05/16/2018 Main Office Magan Nails, I10 Essential (primary ) 9:00a M.D. hypertension R00.2 Palpitations M54.5 Low back pain J06.9 Acute upper respiratory infection, unspecified Office Visit 01/03/2018 4:00p Main Office Magan Nails, I10 Essential ( primary) M.D. hypertension M54.5 Low back pain R00.2 Palpitations Office Visit 11/29/2017 11:00a Main Office Magan Nails, Chris0 Essential ( primary) M.D. hypertension R00.2 Palpitations Office Visit 10/29/2017 4:00p Main Office Magan Nails, Chris0 Essential ( primary) M.D. hypertension R00.2 Palpitations Office Visit 10/20/2017 2:00p Main Office Magan Nails, Z23 Encounter for M.D. immunization S91.331A Puncture wound without foreign body, right foot, init encntr W26.8xxA Contact with other sharp object(s), NEC, initial encounter Office Visit 07/16/2017 4:00p Main Office Magan Nails, Chris0 Essential ( primary) M.D. hypertension R00.2 Palpitations Office Visit 05/21/2017 11:40a Main Office Magan Nails, I10 Essential ( primary) M.D. hypertension R00.2 Palpitations Office Visit 04/27/2017 1:40p Main Office Magan Nails, I10 Essential ( primary) M.D. hypertension R00.2 Palpitations Office Visit 12/25/2016 2:20p Main Office Magan Nails, M70.52 Other bursitis of M.D. knee, left knee I10 Essential (primary) hypertension Office Visit 10/09/2016 10:15a Main Office NO Maria B07.8 Other viral warts R03.0 Elevated blood-pressure reading, w/o diagnosis of htn Office Visit 10/09/2015 1:30p Main Office NO Maria Z00.01 Encounter for general adult medical exam w abnormal findings M54.5 Low back pain B07.9 Viral wart, unspecified Office Visit 10/17/2014 10:45a Main Office Leigh Ann Cintron, 789.09 Pain Abdominal Afnp-C Other Spec Site Office Visit 06/26/2013 1:00p Main Office Melo Martínez M.D. 462 Pharyngitis Acute Office Visit 05/22/2013 3:10p Main Office Magan Nails, 530.81 Esophageal Reflux M.D. 796.2 Blood Pressure Reading Elevated W/O Hypertension v05.8 Single Disease Spec Other Vaccination & Inoculation Office Visit 03/17/2013 4:00p Main Office Magan Nails, 789.06 Pain Abdominal M.D. Epigastric 401.1 Hypertension Benign 530.81 Esophageal Reflux Office Visit 12/13/2012 5:20p Main Office Magan Nails M.D. 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 Respiratory Infections Acute Unspec Sites Office Visit 05/04/2011 1:00p Main Office Leigh Ann 535.00 Gastritis Acute W/O [place], Afnp-C Hemorrhage Office Visit 08/19/2010 2:20p Main Office Magan Nails, V05.4 Varicella M.D. Vaccination & Inoculation V70.0 Examination General Medical Routine AT Health Care Facility Office Visit 07/16/2008 3:30p Main Office NO Maria V20.2 Routine , child includes Office Visit 11/28/2007 3:30p Main Office NO Maria V20.2 Routine , child includes Office Visit 03/15/2006 4:15p Main Office Leigh Ann Cintron, 490 Bronchitis Acute Or Afnp-C Chronic Not Spec Office Visit 10/29/2005 9:30a Main Office Colette Morris V20.2 Routine, child Afnp-C includes Office Visit 05/07/2005 2:45p Main Office Cary Delvalle, 465.9 URI Upper [employer] Respiratory Infections Acute Unspec Sites 461.9 Sinusitis Acute Unspec Office Visit 09/26/2004 2:20p Main Office Magan Nails, V20.2 Routine, child M.D. includes Office Visit 07/21/2004 6:10p Main Office Magan Nails, 786.2 Cough M.D. 477.9 Rhinitis Allergic Cause Unspec Office Visit 08/13/2003 2:20p Main Office Magan Riggs V20.2 Routine, child Jesu, M.D. includes infant Office Visit 07/05/2003 8:00p Main Office Cary Wright 696.3 Pityriasis Rosea Mook, [employer] Office Visit 03/30/2003 1:50p Main Office Magan Riggs 078.19 Viral Warts Spec Other Jesu, M.D. Office Visit 03/14/2003 3:00p Main Office Magan Riggs 078.19 Viral Warts Spec Other Middemetrice, M.D. Office Visit 02/28/2003 4:20p Main Office Magan Riggs 078.19 Viral Warts Spec Other Middemetrice, M.D. Office Visit 02/12/2003 3:00p Main Office Cb Garcia Nasopharyngitis Acute Maria M N[place] Office Visit 01/31/2003 1:40p Main Office Magan Riggs 078.19 Viral Warts Spec Other Jesu, M.D. Office Visit 01/17/2003 12:40p Main Office Magan Riggs 078.19 Viral Warts Spec Other Midura, M.D. Office Visit 01/10/2003 9:00a Main Office Magan Riggs 078.19 Viral Warts Spec Other Midura, M.D. Office Visit 12/19/2002 2:00p Main Office Colette Morris, V20.2 Routine, child Afnp-C includes Office Visit 04/01/2002 11:20a Main Office Magan Riggs 784.0 Headache Jesu, M.DKim 461.0 Sinusitis Acute Maxillary 465.9 URI Upper Respiratory Infections Acute Unspec Sites Office Visit 03/29/2002 12:00p Main Office Koby Cobb M.D. Office Visit 03/16/2002 8:15p Main Office Cary Delvalle, 466.0 Bronchitis Acute [employer] Office Visit 10/24/2001 2:40p Main Office Magan Nails M.D. Office Visit 03/29/2001 2:00p Main Office Colette Morris, Afnp-C Office Visit 10/06/2000 2:40p Main Office Magan Nails M.D. Plan of Treatment Future Appointment(s):08/16/2018 4:00 pm - Magan Nails M.D. at Main [id number]/24/2018 - Janie Sorto, FNPM54.5 Low back painE66.3 HbmxrmddtgN12 Essential (primary) sddkbfszbcdjB55.00 Encounter for general adult medical examination without abnormal findingsAllComments:Medication Management Patient Understands medications he 's taking? Yes No Are there Barriers to Adherence? Yes No Has the patient been asked about herbal supplements and therapies, andOTC meds? Yes No As always, we strongly encourage a healthy diet and making physical activity a part of your every day life. If you have questions about how or where to start, please contact the office.
[2018-06-15 22:01] LABS: Troponin I 0.01 ng/mL (<0.04)
[2018-06-15 22:10] LABS: Anion Gap 9 mmol/L (2-11)
[2018-06-15] MEDS ORDERED: Ketorolac INJ* 30 MG/ML 1 ML VIAL IM ONE (22:38)
--- NOTE | 2018-06-15 23:13 | ED ---
Progress - Progress Note Progress Note: The patient is a 23 year old male who is presenting to the [facility] with a chief complaint of chest pain. She was a sign out from Dr. New and was received by Dr. Rosario. The patient is pending lab work up and disposition. Course/Dx - Course Course Of Treatment: PT is a sign out from Dr. New to Dr. Rosario and was pending disposition and lab work up. Currently, the patient is pain free at this time (2300) after taking his HTN medication 15 min prior to reEvaluation. The patient upon reviewing lab results, will be discharged home with a dx of chest wall pain. He is agreeable to this plan and will follow up with his primary care physician as recommended. - Diagnoses Provider Diagnoses: Chest wall pain Discharge - Sign-Out/Discharge Documenting (check all that apply): Patient Departure, Receiving Sign-Out Receiving patient FROM: Jean Pierre New Patient Received Moderate/Deep Sedation with Procedure: No - Discharge Plan Condition: Stable Disposition: HOME Prescriptions: Ibuprofen TAB* [Motrin TAB* 800 MG] 800 mg PO Q6H PRN #30 tab PRN Reason: Pain Referrals: Magan Nails MD [Primary Care Provider] - - Attestation Statements Document Initiated by Scribe: Yes Documenting Scribe: Mor Kat Provider For Whom Scribe is Documenting (Include Credential): Dr. Jamarcus Humphreyibashutosh Attestation: Mor Owusu, scribed for Dr. Samuel Rosario on 06/15/18 at 2313. Status of Scribe Document: Ready
[2018-06-15 23:26] VITALS: BP 155/92
== END 2018-06-15 23:27 | disposition home or self-care (01) ==
LOC: ED 21:04
DX: R07.89 Other chest pain (principal); I10 Essential (primary) hypertension; K21.9 Gastro-esophageal reflux disease without esophagitis; K44.9 Diaphragmatic hernia without obstruction or gangrene
CPT/HCPCS: 36415; 71045; 80053; 84484; 85025; 85379; 93005; 96374; 96376; 99283; J1885

== ENCOUNTER → 2018-06-21 13:39 | Emergency (ER) | payer OTHER ==
[2018-06-21 13:46] VITALS: BP 158/96
[2018-06-21 15:01] LABS: ABS Basophils 0 10^3/ul (0-0.2); ABS Eosinophils 0.1 10^3/ul (0-0.6); ABS Lymphocytes 1.8 10^3/ul (1.0-4.8); ABS Monocytes 0.4 10^3/ul (0-0.8); ABS Neutrophils 3.1 10^3/ul (1.5-7.7); ABS Nucleated RBC 0 10^3/ul; Eosinophil % 1.4 %; Hematocrit 40 % (36-46); Hemoglobin 13.9 g/dL (14.0-18.0); Lymphocyte % 33.2 %; Mean Corpuscular HGB Conc 35 g/dL (31-36); Mean Corpuscular Hemoglobin 28 pg (27-31); Mean Corpuscular Volume 78 fL (80-94); Mean Platelet Volume 7.4 fL (7.4-10.4); Nucleated Red Blood Cells % 0.1; Platelet Count 223 10^3/uL (150-450); Red Blood Count 5.06 10^6 /uL (4.18-5.48); Red Cell Distribution Width 14 % (10.5-15); White Blood Count 5.5 10^3/uL (3.5-10.8)
[2018-06-21 15:22] LABS: Troponin I 0.01 ng/mL (<0.04)
[2018-06-21 15:42] LABS: Albumin 4.2 g/dL (3.2-5.2); Albumin/Globulin Ratio 1.6 (1-3); BUN/Creatinine Ratio 19.5 (8-20); EGFR African American 151.5 (>60); EGFR Non-African American 125.2 (>60); Globulin 2.6 g/dL (2-4); Potassium 3.7 mmol/L (3.5-5.0); Total Bilirubin 0.4 mg/dL (0.2-1.0); Total Protein 6.8 g/dL (6.4-8.9)
== END | disposition home or self-care (01) ==
LOC: ED 13:39
DX: R11.10 Vomiting, unspecified (principal); Z53.21 Procedure and treatment not carried out due to patient leaving prior to being seen by health care provider
CPT/HCPCS: 36415; 80053; 83605; 84484; 85025; 93005; 99281

== ENCOUNTER 2018-06-28 09:57 | Emergency (ER) | payer SELFPAY ==
--- OUTSIDE RECORDS SUMMARY | 2018-06-28 10:08 | XMS REPORT | Continuity of Care Document ---
:1995 External Reference #:[id number] Author Name María Elena Webb NP Address [address] [facility] [place] [address] Care Team Providers Name Role Phone Magan Nails Care Team Information [employer] Unavailable Magan Nails Primary Care Physician Unavailable Payers Date Identification Numbers Payment Provider Subscriber Effective: 2011 Policy Number: [id number] [facility] Cristhian Rick Santana Group Name: [employer] [address] [address] PayID: [id number] [place] [address] Advance Directives Description No Information Available Problems Active Problems Provider Date Acute upper respiratory infection Magan Nails M.D. Onset: 05/26/2011 Low back pain Magan Nails M.D. Onset: 12/13/2012 Neuralgia Magan Nails M.D. Onset: 12/13/2012 Epigastric pain Magan Nails M.D. Onset: 03/17/2013 Benign essential hypertension Magan Nails M.D. Onset: 03/17/2013 Gastroesophageal reflux disease aMgan Nails M.D. Onset: 03/17/2013 Elevated blood-pressure reading without Magan Nails M.D. Onset: 2013 diagnosis of hypertension Palpitations Magan Nails M.D. Onset: 04/27/2017 Enthesopathy of knee Magan Nails M.D. Onset: 12/25/2016 Family History Date Family Member(s) Observation Comments Father Hypertension Father Glaucoma Father PA Maternal Grandmother Ovarian Cancer Social History Type Date Description Comments Sex Unknown Lives With mother Tobacco Use Start: Unknown Never Smoked Cigarettes ETOH Use Denies alcohol use Recreational Drug Use Denies Drug Use Tobacco Use Start: Unknown Patient has never smoked Exercise Type/Frequency Exercises sporadically Allergies, Adverse Reactions, Alerts Description No Known Drug Allergies Medications Active Medications SIG Qnty Indications Ordering Date Provider Dilt-XR Take One Capsule By 30caps I10 Magan Nails, 04/28/2018 180mg Caps ER Mouth Every Day For M.D. 24HR High Blood Pressure Physical Therapy treatment and M54.5 Magan Nails, 01/03/2018 evaluation low back M.D. pain Brimonidine Tartrate 1 GTT Both Eyes bid Unknown 12/25/2016 for glaucoma 0.2% Solution Glaucoma gtts 1 gtt both eyes qhs Unknown 09/29/2016 History Medications Azithromycin 2 by mouth today 6tabs J06.9 Magan Riggs 05/16/2018 - 250mg and 1 by mouth x 4 Midura, M.D. 05/24/2018 Tablets days Cheratussin ac 5-10 milliliters 120ml J06.9 Magan Riggs 05/16/2018 - every 4 hours as Midura, M.D. 05/24/2018 100-10mg/5ML Syrup needed Diltiazem HCL ER 1 by mouth every 30caps I10 Magan Riggs 11/29/2017 - 180mg day for high blood Midura, M.D. 04/28/2018 Caps ER 24HR pressure Diltiazem HCL ER 1 by mouth daILY 30caps I10 Magan Mendez. 10/29/2017 - 120mg for high blood Midura, M.D. 11/29/2017 Caps ER 24HR pressure Atenolol 1 by mouth every 30tabs I10 Magan Riggs 05/21/2017 - 25mg Tablets day Midura, M.D. 10/29/2017 Physical Therapy treatment and M70.52 Magan Riggs 12/25/2016 - evaluation left Midura, M.D. 04/27/2017 knee pain Meloxicam 1 by mouth every 30tabs M70.52 Magan T. 12/25/2016 - 7.5mg Tablets day for pain and Midura, M.D. 04/27/2017 inflamation take with food. Lisinopril 1 by mouth every 30tabs Magan Riggs 11/11/2016 - 10mg Tablets day Midura, M.D. 05/21/2017 No Active Medications Unknown 10/09/2016 - 11/11/2016 No Active Medications Unknown 10/09/2015 - 10/09/2015 Cyclobenzaprine HCL 1 by mouth q hs 30tabs M54.5 Constance Jarvisr, 10/09/2015 - 10mg as needed [employer] 10/09/2016 Tablets No Active Medications Unknown 10/17/2014 - 10/17/2014 Cyclobenzaprine HCL 1 by mouth q hs 10tabs Leigh Ann 10/17/2014 - 10mg as needed [facility], 10/09/2015 Tablets Afjessie-C Famotidine 1 bid prn for 30tabs 789.06 Magan Riggs 03/17/2013 - 20mg Tablets stomach Maria M Nails 10/17/2014 No Active Medications Unknown 11/21/2012 - 03/17/2013 No Active Medications Unknown 03/11/2012 - 06/29/2012 Zithromax 2 po qd today , 1tabs 465.9 Magan Riggs 05/26/2011 - 250mg Tablets then 1 po qd times Maria M Nails 06/05/2011 4 Zantac 1 po bid 60tabs Leigh Ann 05/04/2011 - 150mg Tablets [facility], 05/26/2011 Afjessie-C Retin-A apply to affected 45gm Magan Riggs 08/19/2010 - 0.05% Cream area qhs Maria M Nails 03/11/2012 Nix Creme Rinse apply to scalp, 30ml Magan Riggs 11/29/2008 - 1% Liquid rinse out after 30 Maria M Nails 08/19/2010 minutes Zithromax Z-Brayan as Directed 1Pack Cary Wright 05/07/2005 - 250mg MANNY Delvalle 10/29/2005 Tablets Albuterol Aero Inhaler Use tid as 1units Cary Wright 05/07/2005 - Directed MANNY Delvalle 11/28/2007 Singulair One PO Daily as 40tabs Cary Wright 05/07/2005 - 4mg Tablets Directed MANNY Delvalle 11/28/2007 Robitussin 1-2 TSP PO qid prn 4Oz Cary Wright 05/07/2005 - Cough MANNY Delvalle 10/29/2005 100mg/5ML;3.5%Alcoho Syrup Nasonex 1 spray each 1units Leigh Ann 08/04/2004 - 50mcg nostril daily Abdulaziz, 11/28/2007 Afnp-C Zithromax 2 teaspoons today 40ML Roddy RiveroKim 07/25/2004 - 200mg/5 ML and one teaspoon Maria M Dumont 05/07/2005 Suspension for four days Claritin 1 po qd prn for 30tabs Magan T. 07/21/2004 - 10mg Tablets allergies Middemetrice M.DKim 05/07/2005 Zithromax Suspension 1 TSP Today, Then 15ml Cb A. 02/12/2003 - 200MG/5cc 1/2 TSP qd For 4 Maria M Nj 02/17/2003 200mg/5cc Days Tussi-12 1 tsp q12h prn 100cc Cb A. 02/12/2003 - Liquid cough Maria M Nj 02/12/2003 Robitussin DM one tsp q4-6 prn 4Oz Cb A. 02/12/2003 - as needed for Maria M Nj 03/30/2003 cough Bactroban Apply bid prn 15gm Colette Morris, 12/19/2002 - Cream Afnp-C 12/26/2002 Zithromax Suspension 2 TSP Day One Then 30ml Magan T. 04/01/2002 - 200MG/5cc 1 TSP Daily Over Jesu M.DKim 12/19/2002 200mg/5cc Next 4 Days. Keflex Liquid - 1 TSP PO 100cc Magan T. 10/24/2001 - 250mg/5cc bid Middemetrice M.DKim 03/29/2002 Nexium 1 po qd Unknown - 20mg Capsules 11/21/2012 Immunizations CPT Code Status Date Vaccine Reaction Lot # [id number] Given 10/20/2017 Tetanus And Diptheria Adult [id number] Preservative Free >7Yrs 03717 Given 05/22/2013 Meningococcal Conjugate [id number] Vaccine,Serogroups For Intramuscular Use 33358 Given 08/19/2010 Varicella (Chicken Pox) no reaction noted [id number] Immunization 36559 Given 08/02/2006 Tdap Tetanus, W Pertussis [id number] 47336 Given 10/31/1999 (IPV) Inactive Poliovirus Vaccine 86091 Given 10/31/1999 MMR Virus Immunization 81676 Given 10/31/1999 DTaP Immunization 23746 Given 04/29/1996 MMR Virus Immunization 58237 Given 04/29/1996 DTaP Immunization 43173 Given 04/29/1996 (Hib) Hemoplilus Influenza B 99782 Given 02/03/1996 Varicella (Chicken Pox) Immunization 86515 Given 1995 (Hib) Hemoplilus Influenza B 29067 Given 1995 DTaP Immunization 06558 Given 1995 (IPV) Inactive Poliovirus Vaccine 86483 Given 1995 Hepatitis B Immunization, -19 Years 38819 Given 1995 (IPV) Inactive Poliovirus Vaccine 95498 Given 1995 DTaP Immunization 73393 Given 1995 (Hib) Hemoplilus Influenza B 34554 Given 1995 Hepatitis B Immunization, -19 Years 65519 Given 1995 (IPV) Inactive Poliovirus Vaccine 79717 Given 1995 DTaP Immunization 33694 Given 1995 (Hib) Hemoplilus Influenza B 45155 Given 1995 Hepatitis B Immunization, -19 Years Vital Signs Date Vital Result Comment 06/23/2018 1:45pm BP Systolic 148 mmHg BP Diastolic 98 mmHg Heart Rate 88 /min Body Temperature 97.2 F Respiratory Rate 18 /min Height 69 inches 5'9" Weight 290.00 lb BMI (Body Mass Index) 42.8 kg/m2 05/24/2018 1:56pm BP Systolic 132 mmHg BP [...] Date Facility Test Result H/L Range Note Comprehensive Metabolic 06/23/2018 [facility] ([facility]) Sodium 141 mEq/L 134-149 Prof Potassium 4.2 mEq/L 3.6-5.5 Chloride 102 mEq/L 94-112 Carbon Dioxide 27 mEq/L 21-32 Glucose 89 mg/dL 70-105 BUN 11 mg/dL 6-26 Creatinine 0.8 mg/dL 0.6-1.4 BUN/Creat Ratio 13.8 CALC 8.0-36.0 Calcium 9.8 mg/dL 8.6-10.2 Total Protein 7.3 g/dL 6.4-8.3 Albumin 4.7 g/dL 3.8-5.5 Globulin 2.6 g/dL 2.0-4.8 A/G Ratio 1.8 CALC 0.6-2.3 Alk. Phosphatase 86 U/L 22-95 Alt (SGPT) 180 U/L High 7-35 Ast (Sgot) 88 U/L High 5-34 Total Bilirubin 0.5 mg/dL 0.2-1.3 GFR Non- >60 ml/min/1.73m^ >=60 GFR >60 ml/min/1.73m^ >=60 Lipid Profile 06/23/2018 [facility] ([facility]) Cholesterol 206 mg/dL High 120-200 Triglycerides 302 mg/dL High 30-200 HDL Cholesterol 38 mg/dL 30-70 LDL (Calculated) 108 CALC 0-129 VLDL Cholesterol 60 mg/dL High 0-50 HDL Risk Factor 5.4 CALC High 0.0-4.4 Laboratory test 06/23/2018 [facility] ([facility]) LDL, Direct 128 mg/dL 0- 130 finding CBC Auto Diff 06/21/2018 [facility] White Blood 5.5 10^3/uL N 3.5-10.8 Count Red Blood Count 5.06 10^6/uL N 4.18-5.48 Hemoglobin 13.9 g/dL Low 14.0-18.0 Hematocrit 40 % N 36-46 Mean Corpuscular Volume 78 fL Low 80-94 Mean Corpuscular Hemoglobin 28 pg N 27-31 Mean Corpuscular HGB Conc 35 g/dL N 31-36 Red Cell Distribution Width 14 % N 10.5-15 Platelet Count 223 10^3/uL N 150-450 Mean Platelet Volume 7.4 fL N 7.4-10.4 Abs Neutrophils 3.1 10^3/uL N 1.5-7.7 Abs Lymphocytes 1.8 10^3/uL N 1.0-4.8 Abs Monocytes 0.4 10^3/uL N 0-0.8 Abs Eosinophils 0.1 10^3/uL N 0-0.6 Abs Basophils 0 10^3/uL N 0-0.2 Abs Nucleated RBC 0 10^3/uL Granulocyte % 56.9 % Lymphocyte % 33.2 % Monocyte % 8.0 % Eosinophil % 1.4 % Basophil % 0.5 % Nucleated Red Blood Cells % 0.1 Laboratory test finding 06/21/2018 [facility] Lactic Acid 1.8 mmol/L N 0.5-2.0 1 Troponin I 0.01 ng/mL <0.04 2 Comp Metabolic Panel 06/21/2018 [facility] Sodium 140 mmol/L N 135-145 Potassium 3.7 mmol/L N 3.5-5.0 Chloride 107 mmol/L N 101-111 Co2 Carbon Dioxide 25 mmol/L N 22-32 Anion Gap 8 mmol/L N 2-11 Glucose 116 mg/dL High 70-100 Blood Urea Nitrogen 15 mg/dL N 6-24 Creatinine 0.77 mg/dL N 0.67-1.17 BUN/Creatinine Ratio 19.5 N 8-20 Calcium 9.0 mg/dL N 8.6-10.3 Total Protein 6.8 g/dL N 6.4-8.9 Albumin 4.2 g/dL N 3.2-5.2 Globulin 2.6 g/dL N 2-4 Albumin/Globulin Ratio 1.6 N 1-3 Total Bilirubin 0.40 mg/dL N 0.2-1.0 Alkaline Phosphatase 84 U/L N 34-104 Alt 136 U/L High 7-52 Ast 67 U/L High 13-39 Egfr Non- 125.2 >60 Egfr 151.5 >60 3 Laboratory test finding 06/15/2018 [facility] Troponin I 0.01 ng/mL <0.04 4 Comp Metabolic Panel 06/15/2018 [facility] Sodium 136 mmol/L N 135-145 Chloride 105 mmol/L N 101-111 Co2 Carbon Dioxide 22 mmol/L N 22-32 Glucose 113 mg/dL High 70-100 Blood Urea Nitrogen 15 mg/dL N 6-24 Creatinine 0.84 mg/dL N 0.67-1.17 BUN/Creatinine Ratio 17.9 N 8-20 Calcium 9.2 mg/dL N 8.6-10.3 Total Protein 7.1 g/dL N 6.4-8.9 Albumin 4.3 g/dL N 3.2-5.2 Globulin 2.8 g/dL N 2-4 Albumin/Globulin Ratio 1.5 N 1-3 Total Bilirubin 0.50 mg/dL N 0.2-1.0 Alkaline Phosphatase 90 U/L N 34-104 Alt 126 U/L High 7-52 Egfr Non- 113.2 >60 Egfr 137.0 >60 5 Potassium TNP mmol/L 3.5-5.0 6 Anion Gap 9 mmol/L N 2-11 Ast TNP U/L 13-39 7 CBC Auto Diff 06/15/2018 [facility] White Blood Count 6.8 10^3/uL N 3.5-10.8 Red Blood Count 5.62 10^6/uL High 4.18-5.48 Hemoglobin 15.5 g/dL N 14.0-18.0 Hematocrit 44 % N 36-46 Mean Corpuscular Volume 79 fL Low 80-94 Mean Corpuscular Hemoglobin 28 pg N 27-31 Mean Corpuscular HGB Conc 35 g/dL N 31-36 Red Cell Distribution Width 14 % N 10.5-15 Platelet Count 216 10^3/uL N 150-450 Mean Platelet Volume 7.9 fL N 7.4-10.4 Abs Neutrophils 3.4 10^3/uL N 1.5-7.7 Abs Lymphocytes 2.6 10^3/uL N 1.0-4.8 Abs Monocytes 0.7 10^3/uL N 0-0.8 Abs Eosinophils 0.1 10^3/uL N 0-0.6 Abs Basophils 0 10^3/uL N 0-0.2 Abs Nucleated RBC 0 10^3/uL Granulocyte % 49.6 % Lymphocyte % 38.8 % Monocyte % 10.0 % Eosinophil % 1.0 % Basophil % 0.6 % Nucleated Red Blood Cells % 0.1 Laboratory test 06/15/2018 [facility] D Dimer Quantitative < 200 ng/mL N Less Than 8 finding 230 Laboratory test 06/15/2018 [facility] Potassium Redraw TNP mmol/L 3.5-5.0 9, 10 finding Ast Redraw TNP U/L 13-39 11 Laboratory test finding 06/15/2018 [facility] Potassium Redraw TNP mmol/L 3.5- 5.0 12, 13 Ast Redraw TNP U/L 13-39 14 Basic Metabolic Profile 04/27/2017 [facility] ([facility]) Sodium 138 mEq/L 134-149 Potassium 4.2 mEq/L 3.6-5.5 Chloride 98 mEq/L 94-112 Carbon Dioxide 26 mEq/L 21-32 Glucose 104 mg/dL 70-105 BUN 14 mg/dL 6-26 Creatinine 0.9 mg/dL 0.6-1.4 BUN/Creat Ratio 15.6 CALC 8.0-36.0 Calcium 9.9 mg/dL 8.6-10.2 GFR Non- >60 ml/min/1.73m^ >=60 GFR >60 ml/min/1.73m^ >=60 Laboratory test 04/27/2017 Painting Mabel ([facility]) Magnesium, Serum 1.7 mEq/L 1.2-2.1 finding TSH 1.93 mIU/L 0.50-6.00 Free T4 1.22 ng/dL 0.75-1.54 Ua - Non Micro ([facility]) 10/09/2015 [facility] Appearance clear (607)- - Color yellow Glucose, Urine ([facility]/CTX) neg Bilirubin neg Ketones neg SP Grav 1.025 Blood neg PH 6.0 Protein neg Urobil 0.2 Nitrite neg Leukocytes ([facility]) neg Comprehensive Metabolic 11/30/2012 [facility] ([facility]) Albumin 4.9 g/dL 3.8-5.5 Prof Alk. Phos. 118 U/L High 22-95 15 Alt (SGPT) 67 U/L High 10-40 16 Ast (Sgot) 40 U/L High 5-34 17 BUN 11 mg/dL 6-26 Calcium 9.2 mg/dL 8.6-10.2 Chloride 98 mEq/L 94-112 Creatinine 1.0 mg/dL 0.6-1.4 Carbon Dioxide 27 mEq/L 21-32 Glucose 91 mg/dL 70-105 Sodium 136 mEq/L 134-149 Total Bilirubin 0.7 mg/dL 0.2-1.3 Total Protein 7.4 g/dL 6.3-8.1 Potassium 4.1 mEq/L 3.6-5.5 Globulin 2.5 g/dL 2.0-4.8 A/G Ratio 2.0 Calc 0.6-2.3 BUN/Creat Ratio 11.0 Calc 8.0-36.0 Laboratory test 11/30/2012 [facility] ([facility]) TSH 0.59 mIU/L 0.50- 6.00 finding Lipid Profile 11/30/2012 [facility] ([facility]) Cholesterol 174 mg/dL 120- 200 HDL 33 mg/dL 30-70 Triglycerides 162 mg/dL 30-200 HDL Risk Factor 5.3 CALC High 0.0-4.4 LDL (Calculated) 109 CALC 0-129 VLDL (Calculated) 32 mg/dL 0-50 CBC Electronic ([facility]) 11/30/2012 [facility] WBC 7.6 3.6-9.6 (607)- - RBC 5.60 3.90-5.70 Hemoglobin ([facility]/CTX) 15.7 g/dL 12.1 - 17.2 Hematocrit (a/CMC/CTX) 47.0 % 36.1 - 50.3 Platelets 195 10^3/ul 150-400 Lymph% 20.7 20.5-51.1 Mixed% 4.1 Neutrophils % 75.2 Mean Corpuscular Vol 84 82.2-97.4 Mean Corpuscular Hemoglobin 28.0 27.6-33.3 Mean Corpuscular Hemo Concen 33.4 32.0-36.0 RDW 11.3 Low 11.6-13.7 Mean Platelet Volume 7.0 6.5-11.0 Clotest 05/02/2012 [facility] Clotest (SEE NOTE) 18 Laboratory test finding 04/08/2012 [facility] Lipase 52 U/L High 22-51 C Reactive Protein 1.0 mg/dL High Less than 0.5 Comp Metabolic Panel 04/08/2012 [facility] Sodium 136 mmol/L 133-145 Potassium 4.1 mmol/L [...] U/L High 14-54 Ast 38 U/L 12-42 Urinalysis 04/08/2012 [facility] Urine Color Yellow Urine Appearance Turbid Urine Specific [place] 1.022 1.010-1.030 Urine Esterase Negative Negative Urine Nitrate Negative Negative Urine Urobilinogen Negative E.U./dL Negative Urine Protein Negative mg/dL Negative Urine pH 7.5 5-9 Urine Blood Negative Negative Urine Ketones Negative mg/dL Negative Urine Bilirubin Negative Negative Urine Glucose Negative mg/dL Negative CBC Auto Diff 04/08/2012 [facility] White Blood Count 6.1 10^3/uL 4.8-10.8 Red [...] 0-2 Nucleated Red Blood Cells % 0.1 Stool For Blood 04/08/2012 [facility] Stool Occult (SEE NOTE) 19 Blood Laboratory test 05/26/2011 [facility] Bordetella 20 finding Pertussis ----- <SEE NOTE> Comprehensive 05/04/2011 [facility] ([facility]) Albumin 4.6 g/dL 3.8-5. Metabolic Prof 5 Alk. Phos. 132 U/L High 22-95 21 Alt (SGPT) 49 U/L High 10-40 22 Ast (Sgot) 31 U/L 5-34 BUN 18 mg/dL 6-26 Calcium 9.0 mg/dL 8.6-10.2 Chloride 99 mEq/L 94-112 Creatinine 0.8 mg/dL 0.6-1.4 Carbon Dioxide 29 mEq/L 21-32 Glucose 90 mg/dL 70-105 Sodium 134 mEq/L 134-149 Total Bilirubin 0.4 mg/dL 0.2-1.3 Total Protein 7.2 g/dL 6.3-8.1 Potassium 3.9 mEq/L 3.6-5.5 Globulin 2.5 g/dL 2.0-4.8 A/G Ratio 1.8 Calc 0.6-2.2 BUN/Creat Ratio 23.8 Calc 8.0-36.0 Laboratory test finding 05/04/2011 Painting Mabel ([facility]) TSH 1.74 mIU/L 0.50-6.00 Free T4 0.80 ng/dL 0.75-1.54 CBC Electronic ([facility]) 05/04/2011 [facility] WBC 7.1 3.6-9.6 (607)- - RBC 5.39 3.90-5.70 Hemoglobin ([facility]/CMC/CTX) 15.3 g/dL 12.1 - 17.2 Hematocrit ([facility]/CMC/CTX) 43.6 % 36.1 - 50.3 Platelets 228 10^3/ul 150-400 Lymph% 33.3 20.5-51.1 Mixed% 9.7 Neutrophils % 57.0 Mean Corpuscular Vol 80.9 Low 82.2-97.4 Mean Corpuscular Hemoglobin 28.4 27.6-33.3 Mean Corpuscular Hemo Concen 35.1 32.0-36.0 RDW 12.9 11.6-13.7 Mean Platelet Volume 9.8 6.5-11.0 Iron/Tibc,%Sat Group 02/17/2011 [facility] Iron 51 g/dL 46-155 23 28 [place] [address] [phone] Total Iron Binding Cap. 402 g/dL 250-450 % Iron Saturation 12.7 % Low 13.0-45.0 Hered Hemochrom 02/17/2011 [facility] Hereditary SEE NOTE 24 Dna 28 [facility] [address] [phone] Please Note: SEE NOTE 25 CBC Electronic ([facility]) 02/17/2011 [facility] WBC 6.4 3.6-9.6 (607)- - RBC [...] 02/11/2011 [facility] Hep C Antibody NON-REACTIVE Non-Reactive 28 [place], [place] [id number] [phone] Hep C S/Co Ratio <0.0 0.0-0.7 Ua - Non Micro ([facility]) 08/19/2010 [facility] Appearance CLEAR (607)- - Color YELLOW Glucose NEG Bilirubin NEG Ketones NEG SP Grav 1.020 Blood NEG PH 5.5 Protein NEG Urobil 0.2 Nitrite NEG Leukocytes ([facility]) NEG Ua - Non Micro ([facility]) 07/16/2008 [facility] Medicine Appearance CLEAR (607)- - Color YELLOW [...] test 10/24/2001 [facility] Lead, Blood 8.2 0-25.0 26 finding (Pediatric) Laboratory test 04/08/2001 [facility] Medicine Quickstrep NEGATIVE Negative finding (607)- - Ua - Non Micro 10/06/2000 [facility] Appearance CLEAR YELLOW (a New) (607)- - Glucose NEGATIVE Bilirubin NEGATIVE Ketones NEGATIVE SP Grav 1.025 Blood NEGATIVE PH 6.0 Protein NEGATIVE Urobil 0.2 Nitrite NEGATIVE Leukocytes NEGATIVE 1 [place] Severe Sepsis and Septic Shock Management Bundle Measure requires all lactic acids initially measuring >2.0 mmol/L be repeated. 2 Troponin-I testing on Plasma Separator Tubes (PST) has a known false positive rate of 0.20-0.40%. All positive troponins reflex immediately to secondary confirmatory testing. Using the [employer] DxI 800 Access Immunoassay systems, the 99th percentile upper reference limit was demonstrated to be < 0.03 ng/mL. 3 Because ethnic data is not always readily available, this report includes an eGFR for both -Americans and non- Americans. The National Kidney Disease Education Program (NKDEP) does not endorse the use of the MDRD equation for patients that are not between the ages of 18 and 70, are , have extremes of body size, muscle mass, or nutritional status, or are non- or non-. According to the National Kidney Foundation, irrespective of diagnosis, the stage of the disease is based on the level of kidney function: Stage Description GFR(mL/min/1.73 m(2)) 1 Kidney damage with normal or decreased GFR 90 2 Kidney damage with mild decrease in GFR 60-89 3 Moderate decrease in GFR 30-59 4 Severe decrease in GFR 15-29 5 Kidney failure <15 (or dialysis) 4 Troponin-I testing on Plasma Separator Tubes (PST) has a known false positive rate of 0.20-0.40%. All positive troponins reflex immediate secondary confirmatory testing. 5 Because ethnic data is not always readily available, this report includes an eGFR for both -Americans and non- Americans. The National Kidney Disease Education Program (NKDEP) does not endorse the use of the MDRD equation for patients that are not between the ages of 18 and 70, are , have extremes of body size, muscle mass, or nutritional status, or are non- or non-. According to the National Kidney Foundation, irrespective of diagnosis, the stage of the disease is based on the level of kidney function: Stage Description GFR(mL/min/1.73 m(2)) 1 Kidney damage with normal or decreased GFR 90 2 Kidney damage with mild decrease in GFR 60-89 3 Moderate decrease in GFR 30-59 4 Severe decrease in GFR 15-29 5 Kidney failure <15 (or dialysis) 6 Specimen Hemolyzed. Result may not be valid. Unable to report test result due to hemolysis. 7 Unable to report test result due to hemolysis. 8 Please note: The following may produce a false positive D Dimer test: - Rheumatoid factor greater than 60 IU/ml - Plasma hemoglobin greater than 0.05 gm/dl - Bilirubin greater than 50 mg/dl - Lipids greater than 1000 mg/dl - FDP greater than 20 ug/ml 9 CALLED SALONI @ 2009 10 Specimen Hemolyzed. Result may not be valid. Unable to report test result due to hemolysis. 11 Unable to report test result due to hemolysis. 12 CALLED SALONI @ 7247 13 Specimen Hemolyzed. Result may not be valid. Unable to report test result due to hemolysis. 14 Unable to report test result due to hemolysis. 15 result zeenat'd 16 result ezenat'd 17 result zeenat'd 18 RUN DATE: 05/03/12 [facility] LAB LIVE PAGE 1 RUN TIME: [address] [place] [address] Specimen Inquiry Name: CRISTHIAN SANTANA : [address]: Jatinder Dozier MD Acct: [id number] Unit: [id number] AGE: 17 Location: ENDO Re05/02/12 SEX: M Status: REG REF SPEC: [id number] ZULEIMA: 05/02/12-[address] [facility] [address]: Jatinder Dozier MD REQ: [id number] RECD: 05/02/12 STATUS: JOSELIN HOOKER DR: Magan Nails MD _ SOURCE[facility] ORDERED: Clotest Procedure Result Verified Site Clotest Final 05/03/12- 46 ML Clotest Negative END OF REPORT * ML=Testing performed at Main Lab DEPARTMENT OF PATHOLOGY, [facility] [employer] [place] [address] Jhon Kerr M.D. Director [facility] Permit #[id number] RUN DATE: 04/08/12 [facility] LAB LIVE PAGE 1 RUN TIME: 1345 [facility] [employer] [place], [place] [address] Specimen Inquiry Name: CRISTHIAN SANTANA : [address]: Jose Angel Bustillo Acct: [id number] Unit: [id number] AGE: 17 Location: ED Re04/08/12 SEX: M Status: REG ER SPEC: [id number] ZULEIMA: 04/08/[address]: Jose Angel Noguera DO REQ: [id number] RECD: 04/08/12 STATUS: JOSELIN SNOW DR: Magan Nails MD _ SOURCE: STOOL SPDES: ORDERED: Hemoccult Procedure Result Verified Site Stool Specimen Description Final 04/08/12- 1343 ML Test not performed Stool Occult Blood Final 04/08/12- 134 ML Stool Occult Blood Positive END OF REPORT * ML=Testing performed at Main Lab DEPARTMENT OF PATHOLOGY, [address] [place] [address] Jhon Kerr M.D. Director [facility] Permit #[id number] 20 RUN DATE: 05/29/11 [facility] NMI LIVE PAGE 1 RUN TIME: 906 Specimen Inquiry RUN USER: INTERFACE Name: BERNADETTE SANTANARyan GAMAEN Status: REG REF Re05/26/11 Age/Sex: 16/M Unit#: [id number] Location: [facility] : 95 SPEC #: [id number] ZULEIMA: 05/26/11 STATUS: COMP REQ #: [id number] RECD: 05/26/11-[address]: Jesu RANGEL,Magan Riggs SOURCE: NASOPHARYN ENTR: 05/26/11-[address]: GLADISC: ORDERED: PERTUSSIS SMITHS STATION QUERIES: MEDENT REQUISITION # [id number] ACT WKST: SO 05/29/11 #1 Procedure Result Verified Site > BORDETELLA PERTUSSIS Final 05/29/11- 09 ML BORDETELLA BY RAPID PCR Negative for Bordetella pertussis/parapertussis DNA Laboratory developed test. Test performed by: [employer] [facility] [employer] [place], [place] [address] - [facility] Permit #[id number] [employer] [facility] [address] DEPARTMENT OF PATHOLOGY, [facility] [employer], [place] [address] [facility] Permit #[id number] Jhon Kerr M.D. Director Nora Lara M.D. Director Of Academic Support 21 RESULT ZEENAT'D 22 RESULT ZEENAT'D 23 ; 24 NO MUTATION IDENTIFIED . Interpretation: This patient's sample was analyzed for the hereditary hemochromatosis (HH) mutations C282Y, H63D, S65C. No mutation was identified. The mutations analyzed by [employer] are most common in the population, and [...] restriction enzyme digestion analyses. . Reference: Randall JS and Laz AP. (2000). Latesha Test 4:97-101. Lashay LOREDO et al. (1999). AM J Prev Med 16:134-140. Jarod De La Rosa (2002). Lancet 360(5132):1673-85. Marilu Metzger et al. (2002). Blood Cells, Molecules. and Diseases. 29(3):418-432. Grisel Montiel et al. (2003). Latesha Med. 5(1):1-8. Lashay LOREDO et al. (2003). [facility]. 5(4):304-10. 25 Genetic counselors are available for health care providers to discuss results at [phone]. . Raffy Shields, Ph.D. Gris Corcoran, Ph.D. Monica Early, Ph.D. Annie Trotter, Ph.D. Shaniqua Santo, Ph.D. Jeannie Santos, Ph.D. 26 REFERENCE RANGE FOR CHILDREN LESS THAN 6 CBC CLASS BLOOD LEAD CONCENTRATION (MG/DL) I LESS THAN OR EQUAL TO 9 IIA 10-14 IIB 15-19 III 20-44 IV 45-69 V GREATER THAN OR EQUAL TO 70 Procedures Date Code Description Status 10/29/2017 46005 Electrocardiogram Complete Completed 04/27/2017 54866 Electrocardiogram Complete Completed 10/09/2016 03092 Destruction Of Flat Warts Or Molluscum Contagiosum, Milia Completed To 15 10/09/2016 01743 Destruction-1 Beign Lesion Completed 10/09/2015 00480 Destruction Of Flat Warts Or Molluscum Contagiosum, Milia Completed To 15 10/09/2015 65064 Destruction-1 Beign Lesion Completed 02/07/2003 94481 Destruction-1 Beign Lesion Completed Encounters Type Date Location Provider Dx Diagnosis Office Visit 05/24/2018 2:00p Main Office NO Regan M54.5 Low back pain E66.3 Overweight I10 Essential (primary) hypertension Z00.00 Encntr for general adult medical exam w/o abnormal findings Office Visit 05/16/2018 9:00a Main Office Magan Nails, I10 Essential ( primary) M.D. hypertension R00.2 Palpitations M54.5 Low back pain J06.9 Acute upper respiratory infection, unspecified Office Visit 01/03/2018 4:00p Main Office Magan Nails, I10 Essential ( primary) M.D. hypertension M54.5 Low back pain R00.2 Palpitations Office Visit 11/29/2017 11:00a Main Office Magan Nails, Chris0 Essential ( primary) M.D. hypertension R00.2 Palpitations Office Visit 10/29/2017 4:00p Main Office Magan Nails, I10 Essential ( primary) M.D. hypertension R00.2 Palpitations Office Visit 10/20/2017 2:00p Main Office Magan Nails, Z23 Encounter for M.D. immunization S91.331A Puncture wound without foreign body, right foot, init encntr W26.8xxA Contact with other sharp object(s), NEC, initial encounter Office Visit 07/16/2017 4:00p Main Office Magan Nails, I10 Essential [...] Main Office Magan Nails, 530.81 Esophageal Reflux M.DKim 796.2 Blood Pressure Reading Elevated W/O Hypertension v05.8 Single Disease Spec Other Vaccination & Inoculation Office Visit 03/17/2013 4:00p Main Office Magan Nails, 789.06 Pain Abdominal M.D. Epigastric 401.1 Hypertension Benign 530.81 Esophageal Reflux Office Visit 12/13/2012 5:20p Main Office Magan Nails M.D. 724.2 Lumbago 729.2 Neuralgia Neuritis & Radiculitis Unspec Office Visit 11/21/2012 7:00p Main Office Kathy Adan, 728.87 Muscle Weakness SOUP MIXER Generalized 796.2 Blood Pressure Reading Elevated W/O Hypertension Office Visit 06/29/2012 11:00a Main Office Janie 530.81 Esophageal Reflux Noreen, NO 719.46 Pain Joint Lower Leg V70.5 Examination Health Of Defined Subpopulations 796.2 Blood Pressure Reading Elevated W/O Hypertension Office Visit 03/11/2012 9:15a Main Office Constance Delgado, 787.01 Nausea W/ Vomiting [employer]CH[employer]IC Office Visit 05/26/2011 12:20p Main Office Magan [...] NO Maria V20.2 Routine , child includes infant Office Visit 11/28/2007 3:30p Main Office NO Maria V20.2 Routine , child includes Office Visit 03/15/2006 4:15p Main Office Leigh Ann Cintron, 490 Bronchitis Acute Or Afnp-C Chronic Not Spec Office Visit 10/29/2005 9:30a Main Office Colette Morris, V20.2 Routine, child Afnp-C includes infant Office Visit 05/07/2005 2:45p Main Office Cary Delvalle, 465.9 URI Upper [employer]SE [employer]CH[employer]IC-C Respiratory Infections Acute Unspec Sites 461.9 Sinusitis Acute Unspec Office Visit 09/26/2004 2:20p Main Office Magan Nails, V20.2 Routine, child M.D. includes infant Office Visit 07/21/2004 6:10p Main Office Magan Nails, 786.2 Cough M.D. 477.9 Rhinitis Allergic Cause Unspec Office Visit 08/13/2003 2:20p Main Office Magan Riggs V20.2 Routine, child Maria M Nails includes Office Visit 07/05/2003 8:00p Main Office Cary Wright 696.3 Pityriasis Rosea Mook, ASE [employer]CH[employer]IC-C Office Visit 03/30/2003 1:50p Main Office Magan Newsome8.19 Viral Warts Spec Other Maria M Nails Office Visit 03/14/2003 3:00p Main Office Magan Newsome8.19 Viral Warts Spec Other Maria M Nails Office Visit 02/28/2003 4:20p Main Office Magan Newsome8.19 Viral Warts Spec Other Maria M Nails Office Visit 02/12/2003 3:00p Main Office Cb Guillen 460 Nasopharyngitis Acute Maria M N[place] Office Visit 01/31/2003 1:40p Main Office Magan Newsome8.19 Viral Warts Spec Other Maria M Nails Office Visit 01/17/2003 12:40p Main Office Magan Newsome8.19 Viral Warts Spec Other Maria M Nails Office Visit 01/10/2003 9:00a Main Office Magan Newsome8.19 Viral Warts Spec Bhavesh Nails M.D. Office Visit 12/19/2002 2:00p Main Office Colette Morris, V20.2 Routine, child Afnp-C includes infant Office Visit 04/01/2002 11:20a Main Office Magan Riggs 784.0 Headache Maria M Nails 461.0 Sinusitis Acute Maxillary 465.9 URI Upper Respiratory Infections Acute Unspec Sites Office Visit 03/29/2002 12:00p Main Office Koby Cobb M.D. Office Visit 03/16/2002 8:15p Main Office Cary Delvalle, 466.0 Bronchitis Acute [employer]SE [employer]CH[employer]IC-C Office Visit 10/24/2001 2:40p Main Office Magan Nails M.D. Office Visit 03/29/2001 2:00p Main Office Colette Morris Afnp-C Office Visit 10/06/2000 2:40p Main Office Magan Nails M.D. Plan of Treatment Future Appointment(s):08/16/2018 4:00 pm - Magan Nails M.D. at Main [id number]/23/2018 - María Elena Webb, NPI10 Essential (primary) hypertensionComments:Call or return to the office if:* you get more than one blood pressure reading above 160/100 (even if only one of the numbers is high)* you feel close to passing out or actually pass out* you have new or worsening swelling in the ankles, legs, hands, or face* you develop palpiatations or funny utsnrvpcrgV72.9 Angina pectoris, unspecifiedComments:Please follow up with cardiology.Z82.49 Family history of ischemic heart disease and other inoskskoW49.30 Sleep apnea, unspecifiedComments:Follow up with sleep ldnabB94.1 Pure hyperglyceridemiaAllComments:1. Patient has been queried about patient's goals/preferences and functional/lifestyle goals at relevant visits. If relevant, describe: Has been discussed, noted above2. Treatment goals as explainedto the patient: see above3. Are there barriers to meeting treatment goals? Yes If Yes, please describe: Barriers include possible insurance limits, disease process, and difficulty with lifestyle changes4. Self- Management goals as described to the patient: Yes, see above As always, we strongly encourage a healthy diet and making physical activity a part of your every day life. If you have questions about how or where to start, please contact the office.
--- OUTSIDE RECORDS SUMMARY | 2018-06-28 10:09 | XMS REPORT | Continuity of Care Document ---
:1995 External Reference #:[id number] Author Name María Elena Webb NP Address [address] [address] Care Team Providers Name Role Phone Magan Nails Care Team Information Farm Manager Unavailable Magan Nails Primary Care Physician Unavailable Payers Date Identification Numbers Payment Provider Subscriber Effective: 2011 Policy Number: [id number] Formerly [facility] Cristhian Rick Santana Group Name: [employer] [address] [id number] PayID: [id number] [place] [address] Advance Directives Description No Information Available Problems Active Problems Provider Date Acute upper respiratory infection Magan Nails M.D. Onset: 05/26/2011 Low back pain Magan Nails M.D. Onset: 12/13/2012 Neuralgia Magan Nails M.D. Onset: 12/13/2012 Epigastric pain Magan Nails M.D. Onset: 03/17/2013 Benign essential hypertension Magan Nails M.D. Onset: 03/17/2013 Gastroesophageal reflux disease Magan Nails M.D. Onset: 03/17/2013 Elevated blood-pressure reading without Magan Nails M.D. Onset: 2013 diagnosis of hypertension Palpitations Magan Nails M.D. Onset: 04/27/2017 Enthesopathy of knee Magan Nails M.D. Onset: 12/25/2016 Family History Date Family Member(s) Observation Comments Father Hypertension Father Glaucoma Father [place] Maternal Grandmother Ovarian Cancer Social History Type [...] Constance Jarvisr, 10/09/2015 - 10mg as needed COMMUNITY INTEGRATION SPECIALIST 10/09/2016 Tablets No Active Medications Unknown 10/17/2014 - 10/17/2014 Cyclobenzaprine HCL 1 by mouth q hs 10tabs Leigh Ann 10/17/2014 - 10mg as needed [facility], 10/09/2015 Tablets Afjessie-C Famotidine 1 bid prn [...] 60tabs Leigh Ann 05/04/2011 - 150mg Tablets [facility], 05/26/2011 Afjessie-C Retin-A apply to affected 45gm [...] Code Status Date Vaccine Reaction Lot # [id number] Given 10/20/2017 Tetanus And Diptheria Adult [id number] Preservative Free >7Yrs 93732 Given 05/22/2013 Meningococcal Conjugate [id number] Vaccine,Serogroups For Intramuscular Use 28699 Given 08/19/2010 Varicella (Chicken Pox) no reaction noted [id number] Immunization 00870 Given 08/02/2006 Tdap Tetanus, W Pertussis [id number] 56045 Given 10/31/1999 (IPV) Inactive Poliovirus Vaccine 35576 Given 10/31/1999 MMR Virus Immunization 42230 Given 10/31/1999 DTaP Immunization 83969 Given 04/29/1996 MMR Virus Immunization 53310 Given 04/29/1996 DTaP Immunization 57579 Given 04/29/1996 (Hib) Hemoplilus Influenza B 48223 Given 02/03/1996 Varicella (Chicken Pox) Immunization 87599 Given 1995 (Hib) Hemoplilus Influenza B 56633 Given 1995 DTaP Immunization 68286 Given 1995 (IPV) Inactive Poliovirus Vaccine 64666 Given 1995 Hepatitis B Immunization, -19 Years 53478 Given 1995 (IPV) Inactive Poliovirus Vaccine 92781 Given 1995 DTaP Immunization 61925 Given 1995 (Hib) Hemoplilus Influenza B 74873 Given 1995 Hepatitis B Immunization, -19 Years 96799 Given 1995 (IPV) Inactive Poliovirus Vaccine 38449 Given 1995 DTaP Immunization 54669 Given 1995 (Hib) Hemoplilus Influenza B 18287 Given 1995 Hepatitis B Immunization, -19 Years [...] Date Facility Test Result H/L Range Note Comp Metabolic Panel 06/21/2018 [facility] Sodium 140 mmol/L N 135-145 Potassium 3.7 [...] Egfr Non- 125.2 >60 Egfr 151.5 >60 1 CBC Auto Diff 06/21/2018 [facility] White Blood Count 5.5 10^3/uL N 3.5-10.8 Red Blood Count 5.06 10^6/uL N 4.18-5.48 [...] Cells % 0.1 Laboratory test finding 06/21/2018 [facility] Lactic Acid 1.8 mmol/L N 0.5-2.0 2 Troponin I 0.01 ng/mL <0.04 3 Laboratory test finding 06/15/2018 [facility] Troponin I 0.01 ng/mL <0.04 4 Comp Metabolic Panel 06/15/2018 [facility] Sodium 136 mmol/L N 135-145 Chloride 105 [...] N 2-11 Ast TNP U/L 13-39 7 Laboratory test finding 06/15/2018 [facility] Potassium Redraw TNP mmol/L 3.5- 5.0 8, 9 Ast Redraw TNP U/L 13-39 10 Laboratory test finding 06/15/2018 [facility] Potassium Redraw TNP mmol/L 3.5- 5.0 11, 12 Ast Redraw TNP U/L 13-39 13 CBC Auto Diff 06/15/2018 [facility] White Blood Count 6.8 10^3/uL N 3.5-10.8 [...] Blood Cells % 0.1 Laboratory test 06/15/2018 [facility] D Dimer Quantitative < 200 ng/mL N Less Than 14 finding 230 Basic Metabolic 04/27/2017 family Sodium 138 mEq/L 134-149 Profile Potassium 4.2 mEq/L 3.6-5.5 Chloride 98 mEq/L 94-112 Carbon Dioxide 26 mEq/L 21-32 Glucose 104 mg/dL 70-105 BUN 14 mg/dL 6-26 Creatinine 0.9 mg/dL 0.6-1.4 BUN/Creat Ratio 15.6 CALC 8.0-36.0 Calcium 9.9 mg/dL 8.6-10.2 GFR Non- >60 ml/min/1.73m^ >=60 GFR >60 ml/min/1.73m^ >=60 Laboratory test finding 04/27/2017 family Magnesium, Serum 1.7 mEq/L 1.2 -2.1 TSH 1.93 mIU/L 0.50-6.00 Free T4 1.22 ng/dL 0.75-1.54 Ua - Non Micro ([facility]) 10/09/2015 [facility] Appearance clear (607)- - Color yellow Glucose, Urine (Fma/CMC/CTX) neg Bilirubin neg Ketones neg SP Grav 1.025 Blood neg PH 6.0 Protein neg Urobil 0.2 Nitrite neg Leukocytes (a/CMC/[facility]) neg CBC Electronic ([facility]) 11/30/2012 [facility] WBC 7.6 3.6-9.6 (607)- - RBC 5.60 3.90-5.70 Hemoglobin (Fma/CMC/CTX) 15.7 g/dL 12.1 - 17.2 Hematocrit (Fma/CMC/CTX) 47.0 % 36.1 - 50.3 Platelets 195 10^3/ul 150-400 Lymph% 20.7 20.5-51.1 Mixed% 4.1 Neutrophils % 75.2 Mean Corpuscular Vol 84 82.2-97.4 Mean Corpuscular Hemoglobin 28.0 27.6-33.3 Mean Corpuscular Hemo Concen 33.4 32.0-36.0 RDW 11.3 Low 11.6-13.7 Mean Platelet Volume 7.0 6.5-11.0 Comprehensive Metabolic Prof 11/30/2012 family Albumin 4.9 g/dL 3.8-5.5 Alk. Phos. 118 U/L High 22-95 15 [...] BUN/Creat Ratio 11.0 Calc 8.0-36.0 Laboratory test finding 11/30/2012 family TSH 0.59 mIU/L 0.50-6.00 Lipid Profile 11/30/2012 family Cholesterol 174 mg/dL 120-200 HDL 33 mg/dL 30-70 Triglycerides 162 mg/dL 30-200 HDL Risk Factor 5.3 CALC High 0.0-4.4 LDL (Calculated) 109 CALC 0-129 VLDL (Calculated) 32 mg/dL 0-50 Clotest 05/02/2012 [facility] Clotest (SEE NOTE) 18 CBC Auto Diff 04/08/2012 [facility] White Blood Count 6.1 10^3/uL 4.8-10.8 Red [...] Red Blood Cells % 0.1 Urinalysis 04/08/2012 [facility] Urine Color Yellow Urine Appearance Turbid Urine Specific [place] 1.022 1.010-1.030 Urine Esterase Negative Negative Urine Nitrate Negative Negative Urine Urobilinogen Negative E.U./dL Negative Urine Protein Negative mg/dL Negative Urine pH 7.5 5-9 Urine Blood Negative Negative Urine Ketones Negative mg/dL Negative Urine Bilirubin Negative Negative Urine Glucose Negative mg/dL Negative Stool For Blood 04/08/2012 [facility] Stool Occult Blood (SEE NOTE) 19 Comp Metabolic Panel 04/08/2012 [facility] Sodium 136 mmol/L 133-145 Potassium 4.1 mmol/L [...] 38 U/L 12-42 Laboratory test finding 04/08/2012 [facility] Lipase 52 U/L High 22-51 C Reactive Protein 1.0 mg/dL High Less than 0.5 Laboratory test 05/26/2011 [facility] Pool <SEE 20 finding Pertussis NOTE> Comprehensive 05/04/2011 family Albumin 4.6 g/dL 3.8-5 Metabolic Prof .5 Alk. Phos. 132 U/L High 22-95 21 [...] 23.8 Calc 8.0-36.0 Laboratory test finding 05/04/2011 family TSH 1.74 mIU/L 0.50-6.00 Free T4 0.80 ng/dL 0.75-1.54 CBC Electronic ([facility]) 05/04/2011 [facility] WBC 7.1 3.6-9.6 (607)- - RBC 5.39 3.90-5.70 Hemoglobin (a/CMC/CTX) 15.3 g/dL 12.1 - 17.2 Hematocrit (a/CMC/CTX) 43.6 % 36.1 - 50.3 Platelets 228 10^3/ul 150-400 Lymph% 33.3 20.5-51.1 Mixed% 9.7 Neutrophils % 57.0 Mean Corpuscular Vol 80.9 Low 82.2-97.4 Mean Corpuscular Hemoglobin 28.4 27.6-33.3 Mean Corpuscular Hemo Concen 35.1 32.0-36.0 RDW 12.9 11.6-13.7 Mean Platelet Volume 9.8 6.5-11.0 Iron/Tibc,%Sat Group 02/17/2011 [facility] Iron 51 g/dL 46-155 23 [address] [place] [address] [phone] Total Iron Binding Cap. 402 g/dL 250-450 % Iron Saturation 12.7 % Low 13.0-45.0 Hered Hemochrom 02/17/2011 [facility] Hereditary SEE NOTE 24 Dna 28 [facility] [address] [address] [place] [address] [phone] Please Note: SEE NOTE 25 CBC Electronic (Fma) 02/17/2011 [facility] Medicine WBC 6.4 3.6-9.6 (607)- - RBC 5.24 [...] [facility] Hep C Antibody NON-REACTIVE Non-Reactive [address] [place] [address] [phone] Hep C S/Co Ratio <0.0 0.0-0.7 Ua [...] Nitrite NEG Leukocytes NEG Laboratory test 10/24/2001 [facility] Lead, Blood 8.2 0-25.0 26 finding (Pediatric) Laboratory test 04/08/2001 [facility] Medicine Quickstrep NEGATIVE Negative finding (607)- - Ua - Non Micro 10/06/2000 [facility] Appearance CLEAR YELLOW ([facility] New) (607)- - Glucose NEGATIVE Bilirubin NEGATIVE Ketones NEGATIVE SP Grav 1.025 Blood NEGATIVE PH 6.0 Protein NEGATIVE Urobil 0.2 Nitrite NEGATIVE Leukocytes NEGATIVE 1 Because ethnic data is not always readily [...] 15-29 5 Kidney failure <15 (or dialysis) 2 [facility] Severe Sepsis and Septic Shock Management Bundle Measure requires all lactic acids initially measuring >2.0 mmol/L be repeated. 3 Troponin-I testing on Plasma Separator Tubes (PST) has a known false positive rate of 0.20-0.40%. All positive troponins reflex immediately to secondary confirmatory testing. Using the [employer] DxI 800 Access Immunoassay systems, the 99th percentile upper reference limit was demonstrated to be < 0.03 ng/mL. 4 Troponin-I testing on Plasma Separator Tubes [...] report test result due to hemolysis. 8 CALLED SALONI @ 1949 9 Specimen Hemolyzed. Result may not be valid. Unable to report test result due to hemolysis. 10 Unable to report test result due to hemolysis. 11 CALLED SALONI @ 2009 12 Specimen Hemolyzed. Result may not be valid. Unable to report test result due to hemolysis. 13 Unable to report test result due to hemolysis. 14 Please note: The following may produce a false positive D Dimer test: - Rheumatoid factor greater than 60 IU/ml - Plasma hemoglobin greater than 0.05 gm/dl - Bilirubin greater than 50 mg/dl - Lipids greater than 1000 mg/dl - FDP greater than 20 ug/ml 15 result zeenat'd 16 result zeenat'd 17 result zeenat'd 18 RUN DATE: 05/03/12 [facility] LAB LIVE PAGE 1 RUN TIME: [address] [place] [address] Specimen Inquiry Name: CRISTHIAN SANTANA JONI : [address]: Jatinder Dozier MD Acct: [id number] Unit: [id number] AGE: 17 Location: ENDO Re05/02/12 SEX: M Status: REG REF SPEC: [id number] ZULEIMA: 05/02/12-[address] [facility] [address]: Jatinder Dozier MD REQ: [id number] RECD: 05/02/12 STATUS: JOSELIN HOOKER DR: Magan Nails MD _ S[facility] ORDERED: Clotest Procedure Result Verified Site Clotest Final 05/03/12- 0746 ML Clotest Negative END OF REPORT * ML=Testing performed at Main Lab DEPARTMENT OF PATHOLOGY, [facility] [employer] [place], [place] [address] Jhon Kerr M.D. Director [facility] Permit #[id number] RUN DATE: 04/08/12 [facility] LAB LIVE PAGE 1 RUN TIME: [address] [place] [address] Specimen Inquiry Name: CRISTHIAN SANTANA : [address]: Jose Angel Bustillo Acct: [id number] Unit: [id number] AGE: 17 Location: ED Re04/08/12 SEX: M Status: REG ER SPEC: [id number] ZULEIMA: 04/08/[address] [facility] [address]: Jose Angel Noguera DO REQ: [id number] RECD: 04/08/12 STATUS: JOSELIN SNOW DR: Magan Nails MD _ SOURCE: STOOL SPDESC: ORDERED: Hemoccult Procedure Result Verified Site Stool Specimen Description Final 04/08/12- 1344 ML Test not performed Stool Occult Blood Final 04/08/12- 1344 ML Stool Occult Blood Positive END OF REPORT * ML=Testing performed at Main Lab DEPARTMENT OF PATHOLOGY, [address] [place] [address] Jhon Kerr M.D. Director [facility] Permit #[id number] RUN DATE: 05/29/11 [facility] NMI LIVE PAGE 1 RUN TIME: 906 Specimen Inquiry RUN USER: INTERFACE Name: CRISTHIAN SANTANA Status: REG REF Re05/26/11 Age/Sex: 16/M Unit#: [id number] Location: RIK Bustillo : [birth year] SPEC #: [id number] ZULEIMA: 05/26/11 STATUS: COMP REQ #: [id number] RECD: 05/26/[address]: Jesu RANGEL,Magan Riggs SOURCE: KAYLAN ENTR: 05/26/[address]: MARIANNA: ORDERED: PERTUSSIS SIDNEY QUERIES: MEDENT REQUISITION # [id number] ACT WKST: SO 05/29/11 #1 Procedure Result Verified Site > BORDETELLA PERTUSSIS Final 05/29/11- 0907 ML BORDETELLA BY RAPID PCR Negative for Bordetella pertussis/parapertussis DNA Laboratory developed test. Test performed by: [facility] [employer] [address] [place] [address] [facility] Permit #[id number] [address] [place] [address] DEPARTMENT OF PATHOLOGY, [address] [place] [address] [facility] Permit #[id number] Jhon Kerr M.D. Director Nora Lara M.D. Light Industrial Supervisor 21 RESULT ZEENAT'D 22 RESULT ZEENAT'D 23 1 ; 2 LAV 24 NO MUTATION IDENTIFIED . Interpretation: This patient's sample was analyzed for the hereditary hemochromatosis (HH) mutations C282Y, H63D, S65C. No mutation was identified. The mutations analyzed by [employer] are most common in the population, and [...] Laz AP. (2000). Latesha Test 4:97-101. Lashay ME et al. (1999). AM J Prev Med 16:134-140. Jarod De La Rosa (2002). Lancet 360(5811):1673-81. Marilu Quiros al. (2002). Blood Cells, Molecules. and Diseases. 29(3):418-432. Grisel G et al. (2003). Latesha Med. 5(1):1-8. Lashay ME et al. (2003). Latesha Med. 5(4):304-10. 25 Genetic counselors are available for health care providers to discuss results at [phone]. . Raffy Shields, Ph.D. Gris Corcoran, Ph.D. Monica Early, Ph.D. Annie Trotter, Ph.D. Shaniqua Santo, Ph.D. Jeannie Santos, Ph.D. 26 REFERENCE RANGE FOR CHILDREN LESS THAN 6 CBC CLASS BLOOD LEAD CONCENTRATION (MG/DL) I LESS THAN OR EQUAL TO 9 IIA 10-14 IIB 15-19 III 20-44 IV 45-69 V GREATER THAN OR EQUAL TO 70 Procedures Date Code Description Status 10/29/2017 45894 Electrocardiogram Complete Completed 04/27/2017 48041 Electrocardiogram Complete Completed 10/09/2016 89359 Destruction Of Flat Warts Or Molluscum Contagiosum, Milia Completed To 15 10/09/2016 07297 Destruction-1 Beign Lesion Completed 10/09/2015 25590 Destruction Of Flat Warts Or Molluscum Contagiosum, Milia Completed To 15 10/09/2015 03745 Destruction-1 Beign Lesion Completed 02/07/2003 21380 Destruction-1 Beign Lesion Completed Encounters Type Date [...] Visit 11/29/2017 11:00a Main Office Magan Nails, I10 Essential ( [...] Office Visit 11/21/2012 7:00p Main Office Kathy Loco, 728.87 Muscle Weakness CLIENT CARE COORDINATOR Generalized 796.2 Blood Pressure Reading Elevated W/O Hypertension Office Visit 06/29/2012 11:00a Main Office Janie 530.81 Esophageal Reflux Noreen, COMMUNITY INTEGRATION SPECIALIST 719.46 Pain Joint Lower Leg V70.5 Examination Health Of Defined Subpopulations 796.2 Blood Pressure Reading Elevated W/O Hypertension Office Visit 03/11/2012 9:15a Main Office Constance Delgado, 787.01 Nausea W/ Vomiting COMMUNITY INTEGRATION SPECIALIST Office Visit 05/26/2011 12:20p Main Office Magan [...] Colette Morris V20.2 Routine, child Afnp-C includes infant Office Visit 05/07/2005 2:45p Main Office Cary Delvalle, 465.9 URI Upper COMMUNITY INTEGRATION SPECIALIST-C Respiratory Infections Acute Unspec Sites 461.9 Sinusitis Acute Unspec Office Visit 09/26/2004 2:20p Main Office Magan Nails, V20.2 Routine, child M.D. includes Office Visit 07/21/2004 6:10p Main Office Magan Nails, 786.2 Cough M.DKim 477.9 Rhinitis Allergic Cause Unspec Office Visit 08/13/2003 2:20p Main Office Magan Riggs V20.2 Routine, child Maria M Nails includes infant Office Visit 07/05/2003 8:00p Main Office Cary Wright 696.3 Pityriasis Violetaa Mook, COMMUNITY INTEGRATION SPECIALIST-C Office Visit 03/30/2003 1:50p Main Office Magan Riggs 078.19 Viral Warts Spec Other Matteo Nails. Office Visit 03/14/2003 3:00p Main Office Magan Riggs 078.19 Viral Warts Spec Other Maria M Nails Office Visit 02/28/2003 4:20p Main Office Magan Riggs 078.19 Viral Warts Spec Other Maria M Nails Office Visit 02/12/2003 3:00p Main Office Cb Garcia Nasopharyngitis Acute Maria M Nj Office Visit 01/31/2003 1:40p Main Office Magan Riggs 078.19 Viral Warts Spec Other Maria M Nails Office Visit 01/17/2003 12:40p Main Office Magan Riggs 078.19 Viral Warts Spec Other Maria M Nails Office Visit 01/10/2003 9:00a Main Office Magan Riggs 078.19 Viral Warts Spec Other Maria M Nails Office Visit 12/19/2002 2:00p Main Office Colette Morris, V20.2 Routine, child Afnp-C includes infant Office Visit 04/01/2002 11:20a Main Office Magan Riggs 784.0 Headache Maria M Nails 461.0 Sinusitis Acute Maxillary 465.9 URI Upper Respiratory Infections Acute Unspec Sites Office Visit 03/29/2002 12:00p Main Office Koby Cobb M.D. Office Visit 03/16/2002 8:15p Main Office Cary Delvalle, 466.0 Bronchitis Acute COMMUNITY INTEGRATION SPECIALIST-C Office Visit 10/24/2001 2:40p Main Office Magan Nails M.D. Office Visit 03/29/2001 2:00p Main Office Colette Morris Afnp-C Office Visit 10/06/2000 2:40p Main Office Magan Nails M.D. Plan of Treatment Future Appointment(s):08/16/2018 4:00 pm - Magan Nails M.D. at Main Zcfere4706/23/2018 - María Elena Webb, NPI10 Essential (primary) hypertensionComments:Call or return to the office if:* you get more than one blood pressure reading above 160/100 (even if only one of the numbers is high)* you feel close to passing out or actually pass out* you have new or worsening swelling in the ankles, legs, hands, or face* you develop palpiatations or funny iqzjueyekwK83.9 Angina pectoris, unspecifiedNew Labs:CCS-Comp And Lipid ( [facility]), Ordered: 06/23/18Comments:Please follow up with cardiology.Z82.49 Family history of ischemic heart disease and other diseases of the circulatory hjcyoqL62.30 Sleep apnea, unspecifiedComments:Follow up with sleep studyAllComments:1. Patient has been queried about patient's goals/preferences and functional/lifestyle goals at relevant visits. If relevant, describe: Has been discussed, noted above2. Treatment goals as explainedto the patient: see above3. Are there barriers to meeting treatment goals? Yes If Yes, please describe: Barriers include possible insurance limits, disease process, and difficulty with lifestyle changes4. Self-Management goals as described to the patient: Yes, see above As always, we strongly encourage a healthy diet and making physical activity a part of your every day life. If you have questions about how or where to start, please contact the office.
[2018-06-28] MEDS ORDERED: Ketorolac INJ* 30 MG/ML 1 ML VIAL IV PUSH ONE (10:43)
--- NOTE | 2018-06-28 11:02 | ED ---
HPI Chest Pain - HPI Summary HPI Summary: This patient is a 23 year old M presenting to ED with a chief complaint of chest pain since this morning. The CC is described as a sharp pressure and is located on the left chest. The chest pain began this morning waking him up and has been present during work. He is a solderer electronic at [employer], did not overexert himself this morning. The patient rates the pain as 8/10 initially but now lessened to a 6-7/10. Patient had similar CP several weeks ago. Patient reports fatigue and SOB. Patient has HTN but did not take DILT-XR today, unsure about HLD awaiting PCP test results, but no DM. FMHx of DM. He does not smoke cigarettes, drink or do drugs. He also mentions a recent ingrown toenail removal that is healing well. - History of Current Complaint Chief Complaint: EDChestPainROMI Time Seen by Provider: 06/28/18 10:28 Hx Obtained From: Patient Onset/Duration: Started Hours Ago - Woke him up this morning, Still Present Timing: Intermittent Initial Severity: Severe Current Severity: Moderate Pain Intensity: 6 Pain Scale Used: 0-10 Numeric Chest Pain Location: Left Anterior Character: Pressure/Squeezing, Sharp/Stabbing Aggravating Factor(s): Nothing Alleviating Factor(s): Nothing Associated Signs and Symptoms: Positive: Shortness of Breath, Other: - fatigue Related History: Similar Episode/Dx as: - Several weeks ago, Obesity - Allergy/Home Medications Allergies/Adverse Reactions: Allergies Allergy/AdvReac Type Severity Reaction Status Date / Time No Known Allergies Allergy Verified 06/28/18 10:02 PMH/Surg Hx/FS Hx/Imm Hx Endocrine/Hematology History: Denies: Hx Diabetes Cardiovascular History: Reports: Hx Hypertension Denies: Other Cardiovascular Problems/Disorders Respiratory History: Denies: Hx Asthma, Other Respiratory Problems/Disorders GI History: Reports: Hx Gastroesophageal Reflux Disease, Hx Hiatal Hernia Denies: Hx Ulcer Musculoskeletal History: Denies: Other Musculoskeletal History Sensory History: Denies: Hx Hearing Aid Comment Only: Hx Contacts or Glasses - GLASSES Opthamlomology History: Comment Only: Hx Contacts or Glasses - GLASSES Neurological History: Reports: Hx Headaches Denies: Other Neuro Impairments/Disorders - Surgical History Surgery Procedure, Year, and Place: BILAT GREAT TOE SURGERIES, HIATAL HERNIA Hx Anesthesia Reactions: No Infectious Disease History: No Infectious Disease History: Denies: Traveled Outside the [place] in Last 30 Days - Family History Known Family History: Positive: Diabetes, Other - neg: anaesthesia reaction - Social History Alcohol Use: None Hx Substance Use: No Substance Use Type: Reports: None Hx Tobacco Use: No Smoking Status (MU): Never Smoked Tobacco Review of Systems Positive: Fatigue Positive: Chest Pain - Left anterior Positive: Shortness Of Breath Skin: Other - Ingrown toenail removed, healing well All Other Systems Reviewed And Are Negative: Yes Physical Exam - Summary Physical Exam Summary: VITAL SIGNS: Reviewed. GENERAL: Patient is a well-developed and obese male who is lying comfortable in the stretcher. Patient is not in any acute respiratory distress. HEAD AND FACE: No signs of trauma. No ecchymosis, hematomas or skull depressions. No sinus tenderness. EYES: PERRLA, EOMI x 2, No injected conjunctiva, no nystagmus. EARS: Hearing grossly intact. Ear canals and tympanic membranes are within normal limits. MOUTH: Oropharynx within normal limits. NECK: Supple, trachea is midline, no adenopathy, no JVD, no carotid bruit, no c- spine tenderness, neck with full ROM. CHEST: Reproducible chest pain on left anterior side LUNGS: Clear to auscultation bilaterally. No wheezing or crackles. CVS: Regular rate and rhythm, S1 and S2 present, no murmurs or gallops appreciated. ABDOMEN: Soft, non-tender. No signs of distention. No rebound no guarding, and no masses palpated. Bowel sounds are normal. EXTREMITIES: FROM in all major joints, no edema, no cyanosis or clubbing. NEURO: Alert and oriented x 3. No acute neurological deficits. Speech is normal and follows commands. SKIN: Dry and warm Triage Information Reviewed: Yes Vital Signs On Initial Exam: Initial Vitals Temp Pulse Resp BP Pulse Ox 98.1 F 101 20 170/118 98 06/28/18 09:58 06/28/18 09:58 06/28/18 09:58 06/28/18 09:58 06/28/18 09:58 Vital Signs Reviewed: Yes Diagnostics - Vital Signs Vital Signs Temp Pulse Resp BP Pulse Ox 06/28/18 09:58 98.1 F 101 20 170/118 98 - Laboratory Result Diagrams: 06/28/18 11:09 06/28/18 11:09 Lab Statement: Any lab studies that have been ordered have been reviewed, and results considered in the medical decision making process. - Radiology CXR Radiology Interpretation Completed By: Radiologist Summary of Radiographic Findings: Stigmata of obstructive lung disease. Minimal bibasilar atelectasis. Dr. Raman has reviewed this radiology report. - EKG 1145 Cardiac Rate: Bradycardia - 57 BPM EKG Rhythm: Sinus Bradycardia ST Segment: Normal Summary of EKG Findings: Sinus bradycardia at [address] elevations, normal axis. Re-Evaluation - Re-Evaluation First Eval Re-Evaluation Time: 14:29 Comment: Discussed results with patient. Patient will be discharged with diagnosis of atypical chest pain. Patient understands and agrees with this plan. Chest Pain Course/Dx - Course Assessment/Plan: This patient is a 23-year-old male who presents to the emergency department with chief complaint of having left-sided chest pain. The patients pain is not related to exertion. The pain is sharp and increases with deep inspiration and at palpation. The patient has past medical history significant for hypertension. Blood test results without any significant abnormality except for magnesium of 1.8 for which the patient was given magnesium by mouth. The patient also has increased LFTs and AST of 69 and AST 141 which is almost similar to previous test results in the ED. Possibly this is secondary to his alcohol intake. A chest x-ray impression: Stigmata of obstructive lung disease. Minimal basilar atelectasis. EKG shows a normal sinus rhythm without any ST elevation. EKG is similar to previous EKG done on . In the physical exam the patient had reproducible chest pain. Therefore the patient was given Toradol. After these medications the patients symptoms have improved. 2 troponins 4 hours apart 0.00. Heart score is equal to 1. Therefore I do not believe that the patient has an acute coronary syndrome. The patient has an appointment to see cardiology. Therefore, he was encouraged to keep that appointment. The patient is not hypoxic or tachycardic therefore I have no suspicion for PE. Since the patient is feeling better and the test results are negative the patient will be discharged home with follow- up with PCP. Plan of care was discussed with the patient and understands and agrees. All questions were answered at patient satisfaction. There were no further complaints or concerns. Lung exam before discharge: CTA B/L. Good air exchange. No wheezing or crackles heard. CVS: S1 and S2 present. No murmurs appreciated. Patient is alert and oriented x 3. Patient is hemodynamically stable. Patient will be discharged home with follow up PCP in the next 2-3 days - Chest Pain Differential Diagnosis/HQI/PQRI: Acute NV, ACS, Angina, CHF, Chest Wall, GI Disease, Lower Respiratory Infection - Diagnoses Provider Diagnoses: Atypical chest pain Discharge - Sign-Out/Discharge Documenting (check all that apply): Patient Departure - Discharge Patient Received Moderate/Deep Sedation with Procedure: No - Discharge Plan Condition: Stable Disposition: HOME Patient Education Materials: Chest Pain (ED) Referrals: Magan Nails MD [Primary Care Provider] - 3 Days Additional Instructions: Follow up with your primary care provider in 3 days. RETURN TO THE ER FOR WORSENING OR CHANGING SYMPTOMS. - Billing Disposition and Condition Condition: STABLE Disposition: Home - Attestation Statements Document Initiated by Scribe: Yes Documenting Scribe: Brando Ruiz Provider For Whom Bowen is Documenting (Include Credential): Yosvany Raman MD Scribe Attestation: IBrando, scribed for Yosvany Raman MD on 06/28/18 at 2153. Scribe Documentation Reviewed: Yes Provider Attestation: The documentation as recorded by the scribe, Brando Ruiz accurately reflects the service I personally performed and the decisions made by , Yosvany Raman MD Status of Scribe Document: Viewed
[2018-06-28 11:22] LABS: ABS Basophils 0 10^3/ul (0-0.2); ABS Eosinophils 0.1 10^3/ul (0-0.6); ABS Lymphocytes 2.3 10^3/ul (1.0-4.8); ABS Monocytes 0.6 10^3/ul (0-0.8); ABS Nucleated RBC 0.1 10^3/ul; Eosinophil % 1.4 %; Hematocrit 43 % (36-46); Hemoglobin 14.7 g/dL (14.0-18.0); Lymphocyte % 37.6 %; Mean Corpuscular HGB Conc 34 g/dL (31-36); Mean Corpuscular Hemoglobin 27 pg (27-31); Mean Corpuscular Volume 79 fL (80-94); Mean Platelet Volume 7.4 fL (7.4-10.4); Platelet Count 226 10^3/uL (150-450); Red Blood Count 5.44 10^6 /uL (4.18-5.48); Red Cell Distribution Width 14 % (10.5-15)
[2018-06-28 11:34] LABS: Albumin 4.4 g/dL (3.2-5.2); Albumin/Globulin Ratio 1.6 (1-3); BUN/Creatinine Ratio 15.4 (8-20); Calcium 9.5 mg/dL (8.6-10.3); EGFR African American 124.9 (>60); EGFR Non-African American 103.2 (>60); Globulin 2.7 g/dL (2-4); Magnesium 1.8 mg/dL (1.9-2.7); Potassium 4.2 mmol/L (3.5-5.0); Total Bilirubin 0.6 mg/dL (0.2-1.0); Total Protein 7.1 g/dL (6.4-8.9)
[2018-06-28 11:36] LABS: Troponin I 0.01 ng/mL (<0.04)
[2018-06-28 11:38] LABS: CKMB ng/mL 2.5 ng/mL (0.6-6.3)
[2018-06-28 12:33] LABS: TSH (Thyroid Stimulating Horm) 1.79 mcIU/mL (0.34-5.60)
[2018-06-28] MEDS ORDERED: Magnesium Oxide TAB* 400 MG PO ONE (14:09)
[2018-06-28 15:14] VITALS: BP 189/88
== END 2018-06-28 15:13 | disposition home or self-care (01) ==
LOC: ED 09:57
DX: R07.89 Other chest pain (principal); R06.02 Shortness of breath; R53.83 Other fatigue; I10 Essential (primary) hypertension; K21.9 Gastro-esophageal reflux disease without esophagitis
CPT/HCPCS: 36415; 71046; 80053; 82550; 82553; 83605; 83735; 83880; 84443; 84484; 85025; 93005; 96374; 99283; J1885